=== PATIENT | male | born 1975 | race Caucasian/White ===

== ENCOUNTER 2025-03-19 13:22 | Inpatient (IN) ==
--- NOTE | 2025-03-19 13:35 | Emergency Department Note ---
Impression & Plan Psychosis, Acute dehydration, JIMY (acute kidney injury) ED Provider Note NAME: TABITHA BRAGG AGE: 49 SEX: M : 1975 ARRIVES VIA: [employer] INFORMANT: Patient, ED PROVIDER(S): Rl Cornejo MD CHIEF COMPLAINT: Mental health concern MEDICAL DECISION MAKING: Patient presented due to concern for mental wellness concern. Patient did require sedation the patient is not cooperative with history. Patient did receive Haldol Ativan and Benadryl. Patient's blood work with white count of 11 with normal H&H and platelet count. The patient's kidney function with a creatinine 1.5 with a bicarb of 16 and anion gap of 20. Patient was noted to have metabolic derangements in bicarb and anion gap so the patient was ordered an IV as well as 2 L of IV fluids and repeat BMP. There is concern that the patient could have substance on board. Patient was signed out to Dr. Murphy pending reevaluation and disposition. Discussion w/ other healthcare providers: ED case management Prior /Outside records reviewed: none Differential diagnosis: Mood disorder, infection, hypoglycemia, electrolyte abnormalities, dehydration, medication side effect among others were considered. Diagnostics, as interpreted by me: ECG: None Medical decision rules: None Imaging studies: None HPI: Patient presents due to concern for mental wellness concern. Reportedly the patient's sister had not heard from him in several days and so please go to go check on the patient. The patient was unable to complete sentences and reported he was lying in the grass. When asked the patient does not answer question at hand but instead will talk about other things in the room or saying "are you serious? Are you serious? You do not know where we are?" PAST MEDICAL HISTORY: See Below PAST SURGICAL HISTORY: See Below SOCIAL HISTORY: See Below HOME MEDICATIONS: See Below ALLERGIES: See Below VITALS: See Below PHYSICAL EXAMINATION: GENERAL: Awake and alert. EYE EXAM: Normal conjunctiva. PERRL, no anisocoria and EOM's grossly intact w/o pain. OROPHARYNX: Moist mucus membranes, grossly normal dentition. NECK: Trachea midline, no stridor. LUNGS: Clear to auscultation. Normal chest wall mechanics. HEART: NSR, no MRG. ABDOMEN: Abdomen soft, non-tender, no masses, no rebound or guarding. SKIN: No rashes and no bruising. UPPER EXTREMITIES: Upper extremities are grossly normal. LOWER EXTREMITIES: Grossly normal, no edema. NEURO EXAM: Awake and alert, follows commands, no obvious facial asymmetry, normal speech, moves all 4 extremities. Psych: Tangential patient does not specifically endorse or deny SI HI or AVH. Past Med/Surg History Problem List (Updated 03/23/25 @ 23:46 by Rl Cornejo MD) JIMY (acute kidney injury) (Acute) Acute dehydration (Acute) Cannabis use disorder, moderate, dependence Acute urinary retention Urinary retention Bipolar disorder with severe shemar Bipolar disorder with psychotic features Marijuana use, continuous Acute psychosis Rhabdomyolysis Psychosis (Acute) Sensorineural hearing loss of combined types, bilateral Tinnitus, bilateral Social History Smoking Status: Unknown if ever smoked Hx Alcohol Use: No Hx Substance Use: Yes Preferred Language: Japanese Communication Ability: Impaired Family Day Carer Required: No Beliefs That Will Affect Care: None Feels Safe at Home: Yes Gender Identity: Male Assistive Devices: Glasses Allergies Allergies Allergy/AdvReac Type Severity Reaction Status Date / Time cat dander Allergy Unknown Verified 03/20/25 02:17 Home Meds Home Medications Medication Instructions Recorded Confirmed lurasidone 40 mg tablet (Latuda) 40 mg PO DAILY 03/20/25 03/20/25 mirtazapine 15 mg tablet (Remeron) 15 mg PO HS 03/20/25 03/20/25 quetiapine 50 mg tablet (Seroquel) 50 mg PO HS PRN Insomnia 03/20/25 03/20/25 melatonin 3 mg tablet 6 mg PO HS PRN sleep 03/23/25 03/23/25 quetiapine 100 mg tablet 100 mg PO TID PRN anxiety/agitation 03/23/25 03/23/25 Previous Rx's Medication Instructions Recorded hydroxyzine HCl 10 mg tablet 10 mg PO QID PRN #0 tabs 03/23/25 lithium carbonate 300 mg tablet 300 mg PO HS #0 tabs 03/23/25 quetiapine 200 mg tablet (Seroquel) 200 mg PO HS #0 tabs 03/23/25 tamsulosin 0.4 mg capsule 0.4 mg PO QAM #30 caps 03/23/25 Results & Data (ED) Home Medications Current Medication List: was personally reviewed by tx Laboratory Data Attestation: I reviewed the patient's lab results. 03/20/25 04:05 03/22/25 06:11 Lab Results 03/19/25 03/19/25 03/19/25 Range/Units 13:38 18:42 18:56 WBC 11.57 H (4.8-10.8) K/ul RBC 5.34 (4.70-6.10) M/uL Hgb 16.3 (14.0-18.0) g/dl Hct 45.6 (42.0-52.0) % MCV 85.4 (80.0-100.0) fL MCH 30.5 (25.0-34.0) pg MCHC 35.7 (32.0-36.0) g/dL RDW Std Deviation 37.9 (36.4-46.3) fL RDW Coeff of Manjit 12.2 (11.5-14.5) % Plt Count 366 (130-400) K/uL MPV 9.5 (9.4-12.4) fL Immature Gran % (Auto) 0.3 % Neut % (Auto) 61.6 % Lymph % (Auto) 22.8 % Mellette % (Auto) 11.0 % Eos % (Auto) 3.5 % Baso % (Auto) 0.8 % Neut # (Auto) 7.13 H (1.40-6.50) K/uL Lymph # (Auto) 2.64 (1.20-3.40) K/uL Mellette # (Auto) 1.27 H (0.11-0.59) K/uL Eos # (Auto) 0.41 (0.00-0.50) K/uL Baso # (Auto) 0.09 (0.00-0.20) K/uL Immature Gran # (Auto) 0.03 (0.01-0.20) K/uL Sodium 140 140 (136-145) mmol/L Potassium 3.4 L 3.6 (3.5-5.1) mmol/L Chloride 104 110 H (98-107) mmol/L Carbon Dioxide 16 L 23 (21-32) mmol/L Anion Gap 20 H 7 (3-11) BUN 32 H 28 H (6-23) mg/dl Creatinine 1.55 H 1.27 (0.6-1.4) mg/dl Est Cr Clr Drug Dosing Not Reportable Not Reportable eGFR 54.87 69.69 BUN/Creatinine Ratio 20.6 H 22.0 H (10-20) Glucose 97 86 (70-99(Fasting)) mg/dl Calcium 10.2 8.0 L D (8.6-10.3) mg/dl Magnesium (1.7-2.4) mg/dl Total Bilirubin 1.8 H (0.2-1.0) mg/dl AST 50 H (13-39) U/L ALT 26 (7-52) U/L Alkaline Phosphatase 74 (34-104) U/L Total Creatine Kinase 925 H (30-223) U/L Total Protein 7.7 (6.0-8.3) gm/dl Albumin 4.6 (3.4-5.0) gm/dl Globulin 3.1 (2.5-4.0) gm/dl Albumin/Globulin Ratio 1.5 (0.9-2) TSH 1.257 (0.300-4.500) uIu/ml Urine Color Urine Appearance (Clear) Urine pH (4.5-7.5) Ur Specific [place] (1.000-1.030) Urine Protein (Negative) Urine Glucose (UA) (Negative) Urine Ketones (Negative) Urine Blood (Negative) Urine Nitrite (Negative) Urine Bilirubin (Negative) Urine Urobilinogen (Negative) Ur Leukocyte Esterase (Negative) Urine Comment Salicylates < 3.0 L (3.0-30) mg/dl Urine Opiates Screen (Neg) Ur Methadone, Qual (Neg) Urine Fentanyl Screen (Neg) Acetaminophen < 3 L (10-30) ug/ml Urine Barbiturates (Neg) Ur Phencyclidine (PCP) (Neg) U Amphetamin/Meth Scrn (Neg) MDMA (Ecstasy) Screen (Neg) U Benzodiazepines Scrn (Neg) Ur Cocaine Metabolite (Neg) U Marijuana (THC) Screen (Neg) U Marijuana THC Carboxy (<5) ng/mL Drug Screen Comment Ethyl Alcohol mg/dL < 10.0 (<10.0) mg/dl SARS-CoV-2, RNA, NAAT NEGATIVE (NEGATIVE) 03/19/25 03/19/25 Range/Units 20:35 23:55 WBC (4.8-10.8) K/ul RBC (4.70-6.10) M/uL Hgb (14.0-18.0) g/dl Hct (42.0-52.0) % MCV (80.0-100.0) fL MCH (25.0-34.0) pg MCHC (32.0-36.0) g/dL RDW Std Deviation (36.4-46.3) fL RDW Coeff of Manjit (11.5-14.5) % Plt Count (130-400) K/uL MPV (9.4-12.4) fL Immature Gran % (Auto) % Neut % (Auto) % Lymph % (Auto) % Mellette % (Auto) % Eos % (Auto) % Baso % (Auto) % Neut # (Auto) (1.40-6.50) K/uL Lymph # (Auto) (1.20-3.40) K/uL Mellette # (Auto) (0.11-0.59) K/uL Eos # (Auto) (0.00-0.50) K/uL Baso # (Auto) (0.00-0.20) K/uL Immature Gran # (Auto) (0.01-0.20) K/uL Sodium (136-145) mmol/L Potassium (3.5-5.1) mmol/L Chloride (98-107) mmol/L Carbon Dioxide (21-32) mmol/L Anion Gap (3-11) BUN (6-23) mg/dl Creatinine (0.6-1.4) mg/dl Est Cr Clr Drug Dosing eGFR BUN/Creatinine Ratio (10-20) Glucose (70-99(Fasting)) mg/dl Calcium (8.6-10.3) mg/dl Magnesium 2.3 (1.7-2.4) mg/dl Total Bilirubin (0.2-1.0) mg/dl AST (13-39) U/L ALT (7-52) U/L Alkaline Phosphatase (34-104) U/L Total Creatine Kinase 1169 H (30-223) U/L Total Protein (6.0-8.3) gm/dl Albumin (3.4-5.0) gm/dl Globulin (2.5-4.0) gm/dl Albumin/Globulin Ratio (0.9-2) TSH (0.300-4.500) uIu/ml Urine Color Yellow Urine Appearance Clear (Clear) Urine pH 5.5 (4.5-7.5) Ur Specific [place] 1.028 (1.000-1.030) Urine Protein Negative (Negative) Urine Glucose (UA) Negative (Negative) Urine Ketones 1+ H (Negative) Urine Blood Negative (Negative) Urine Nitrite Negative (Negative) Urine Bilirubin Negative (Negative) Urine Urobilinogen Negative (Negative) Ur Leukocyte Esterase Negative (Negative) Urine Comment Salicylates (3.0-30) mg/dl Urine Opiates Screen Neg (Neg) Ur Methadone, Qual Neg (Neg) Urine Fentanyl Screen Neg (Neg) Acetaminophen (10-30) ug/ml Urine Barbiturates Neg (Neg) Ur Phencyclidine (PCP) Neg (Neg) U Amphetamin/Meth Scrn Neg (Neg) MDMA (Ecstasy) Screen Neg (Neg) U Benzodiazepines Scrn Neg (Neg) Ur Cocaine Metabolite Neg (Neg) U Marijuana (THC) Screen Pos H (Neg) U Marijuana THC Carboxy 416 H (<5) ng/mL Drug Screen Comment SEE NOTE Ethyl Alcohol mg/dL (<10.0) mg/dl SARS-CoV-2, RNA, NAAT (NEGATIVE) Administered Medications Discontinued Medications Enoxaparin Sodium (Enoxaparin Inj 40 Mg/0.4 Ml Syr) 40 mg SQ QAM DENISHA Stop: 04/19/25 08:59 Last Admin: 03/23/25 08:39 Dose: 40 mg Documented By: Admin: 03/22/25 07:35 Dose: 40 mg Documented By: Admin: 03/21/25 08:18 Dose: 40 mg Documented By: Admin: 03/20/25 09:12 Dose: 40 mg Documented By: AUSTIN Haloperidol Lactate (Haloperidol Lactate 5 Mg/Ml 1 Ml Vial) 5 mg IM NOW STA Stop: 03/19/25 13:51 Last Admin: 03/19/25 13:54 Dose: 5 mg Documented By: TOPHER Haloperidol Lactate (Haloperidol Lactate 5 Mg/Ml 1 Ml Vial) 5 mg IM NOW STA Stop: 03/19/25 14:21 Last Admin: 03/19/25 14:24 Dose: 5 mg Documented By: TOPHER Hydroxyzine HCl (Hydroxyzine Hcl 10 Mg Tab) 10 mg PO QID PRN PRN Reason: Anxiety Stop: 04/21/25 21:00 Last Admin: 03/22/25 21:22 Dose: 10 mg Documented By: TKB Sodium Chloride (Nss) 1,000 mls @ 999 mls/hr IV .Q1H1M DENISHA Stop: 03/19/25 17:30 Last Infusion: 03/19/25 17:01 Dose: Infused Documented By: Admin: 03/19/25 16:00 Dose: 999 mls/hr Documented By: Infusion: 03/19/25 16:00 Dose: Infused Documented By: Admin: 03/19/25 15:30 Dose: 999 mls/hr Documented By: NJM Sodium Chloride (Nss) 1,000 mls @ 100 mls/hr IV .Q10H DENISHA Stop: 03/21/25 01:14 Last Infusion: 03/21/25 01:47 Dose: Infused Documented By: Admin: 03/20/25 20:37 Dose: 200 mls/hr Documented By: Infusion: 03/20/25 19:48 Dose: Infused Documented By: Infusion: 03/20/25 17:48 Dose: 200 mls/hr Documented By: Admin: 03/20/25 13:58 Dose: 200 mls/hr Documented By: Infusion: 03/20/25 13:54 Dose: Infused Documented By: Admin: 03/20/25 08:45 Dose: 200 mls/hr Documented By: Infusion: 03/20/25 08:45 Dose: Infused Documented By: Admin: 03/20/25 01:25 Dose: 125 mls/hr Documented By: ERIC [place] Carbonate ([place] Carbonate 300 Mg Tab) 300 mg PO HS DENISHA Stop: 04/20/25 20:59 Last Admin: 03/22/25 20:13 Dose: 300 mg Documented By: Admin: 03/21/25 20:39 Dose: 300 mg Documented By: ANDRIA Lorazepam (Lorazepam 2 Mg/1 Ml Vial) 2 mg IM NOW STA Stop: 03/19/25 14:21 Last Admin: 03/19/25 14:25 Dose: 2 mg Documented By: TOPHER Lorazepam (Lorazepam 2 Mg/1 Ml Vial) 2 mg IM Q4H PRN PRN Reason: Agitation Stop: 04/20/25 16:01 Last Admin: 03/21/25 18:02 Dose: 2 mg Documented By: CSC Lorazepam (Lorazepam 0.5 Mg Tab) 0.25 mg PO NOW STA Stop: 03/22/25 22:24 Last Admin: 03/22/25 22:43 Dose: 0.25 mg Documented By: EKF Lorazepam (Lorazepam 2 Mg/1 Ml Vial) 0.25 mg IV NOW STA Stop: 03/22/25 23:36 Last Admin: 03/23/25 00:30 Dose: 0.25 mg Documented By: EKF Lorazepam (Lorazepam 2 Mg/1 Ml Vial) 2 mg IV NOW STA Stop: 03/23/25 10:53 Last Admin: 03/23/25 11:07 Dose: 2 mg Documented By: JR Melatonin (Melatonin 3 Mg Tab) 6 mg PO HS PRN PRN Reason: Sleep Stop: 04/21/25 23:35 Last Admin: 03/23/25 00:35 Dose: 6 mg Documented By: EKF Menthol (Cough Drop (Sugar Free) Paulino 24 Paulino/1 Box) 1 paulino BUCCAL NOW ONE Stop: 03/22/25 20:17 Last Admin: 03/22/25 20:23 Dose: 1 paulino Documented By: TKB Metoprolol Tartrate (Metoprolol Tartrate 1 Mg/Ml Vial) 2.5 mg IV NOW STA Stop: 03/20/25 04:45 Last Admin: 03/20/25 05:39 Dose: 2.5 mg Documented By: PJP Olanzapine (Olanzapine 10 Mg/2.1 Ml Sdv) 2.5 mg IM Q4H PRN PRN Reason: Agitation Stop: 04/19/25 02:17 Last Admin: 03/20/25 04:38 Dose: 2.5 mg Documented By: AMPARO Olanzapine (Olanzapine 10 Mg/2.1 Ml Sdv) 2.5 mg IM NOW STA Stop: 03/20/25 19:53 Last Admin: 03/20/25 20:37 Dose: 2.5 mg Documented By: PNM Quetiapine Fumarate (Quetiapine Fumarate 200 Mg Tab) 200 mg PO HS DENISHA Stop: 04/19/25 20:59 Last Admin: 03/22/25 20:13 Dose: 200 mg Documented By: Admin: 03/21/25 20:40 Dose: 200 mg Documented By: Admin: 03/20/25 22:51 Dose: 200 mg Documented By: JANICE Quetiapine Fumarate (Quetiapine Fumarate 100 Mg Tablet) 100 mg PO TID PRN PRN Reason: Agitation/psychosis Stop: 04/19/25 20:59 Last Admin: 03/22/25 16:19 Dose: 100 mg Documented By: Admin: 03/21/25 14:59 Dose: 100 mg Documented By: OSMAN Tamsulosin HCl (Tamsulosin Hcl 0.4 Mg Cap) 0.4 mg PO QAM [facility] Stop: 04/20/25 08:59 Last Admin: 03/23/25 08:39 Dose: 0.4 mg Documented By: Admin: 03/22/25 07:36 Dose: 0.4 mg Documented By: Admin: 03/21/25 08:51 Dose: 0.4 mg Documented By: TOBIAS Discharge Plan Visit Data Chief Complaint: Mental Health Evaluation ED Provider: Samson Diaz Discharge Problem: Psychosis, Acute dehydration, JIMY (acute kidney injury) Patient Disposition: Admitted As Inpatient Condition: Good Discharge Instructions Interventions: ED Discharge Assessment Last Done: 03/20/25 02:12 Discharge Problem: Psychosis Qualifiers: Psychosis type: unspecified psychosis type Qualified Code(s): F29 - Unspecified psychosis not due to a substance or known physiological condition
[2025-03-19 14:13] LABS: Basophils # (auto) 0.09 K/uL (0.00-0.20); Basophils % (auto) 0.8 %; Eosinophils # (auto) 0.41 K/uL (0.00-0.50); Eosinophils % (auto) 3.5 %; Hematocrit (blood only) 45.6 % (42.0-52.0); Hemoglobin 16.3 g/dl (14.0-18.0); Immature Granulocytes # (auto) 0.03 K/uL (0.01-0.20); Immature Granulocytes % (auto) 0.3 %; Lymphocytes # (auto) 2.64 K/uL (1.20-3.40); Lymphocytes % (auto) 22.8 %; Mean Corpuscular Hemoglobin 30.5 pg (25.0-34.0); Mean Corpuscular Hgb Conc 35.7 g/dL (32.0-36.0); Mean Corpuscular Volume 85.4 fL (80.0-100.0); Mean Platelet Volume 9.5 fL (9.4-12.4); Monocytes # (auto) 1.27 K/uL (0.11-0.59); Neutrophils # (auto) 7.13 K/uL (1.40-6.50); Neutrophils % (auto) 61.6 %; Platelet Count 366 K/uL (130-400); RDW Coefficient of Variation 12.2 % (11.5-14.5); RDW Standard Deviation 37.9 fL (36.4-46.3); Red Blood Count 5.34 M/uL (4.70-6.10); White Blood Count 11.57 K/ul (4.8-10.8)
[2025-03-19 14:34] LABS: Albumin Level 4.6 gm/dl (3.4-5.0); Anion Gap 20 (3-11); Bilirubin,Total 1.8 mg/dl (0.2-1.0); Calcium 10.2 mg/dl (8.6-10.3); Carbon Dioxide 16 mmol/L (21-32); Chloride 104 mmol/L (98-107); Potassium 3.4 mmol/L (3.5-5.1); Sodium 140 mmol/L (136-145)
[2025-03-19 14:39] LABS: Acetaminophen < 3 ug/ml (10-30); Salicylate < 3.0 mg/dl (3.0-30)
[2025-03-19 14:40] LABS: Alanine Aminotransferase 26 U/L (7-52); Albumin Globulin Ratio 1.5 (0.9-2); Alkaline Phosphatase 74 U/L (34-104); Aspartate Aminotransferase 50 U/L (13-39); BUN Creatinine Ratio 20.6 (10-20); Blood Urea Nitrogen 32 mg/dl (6-23); Globulin 3.1 gm/dl (2.5-4.0); Glucose 97 mg/dl (70-99(Fasting)); Total Protein 7.7 gm/dl (6.0-8.3)
[2025-03-19 14:51] LABS: Thyroid Stimulating Hormone 1.257 uIu/ml (0.300-4.500)
--- NOTE | 2025-03-19 19:12 | Emergency Department Note ---
ED Visit Note Received this patient sent from Dr. Cornejo see his note for further additional riving details. Patient evidently somewhat agitated confused upon arrival and received sedating medication for safety and workup. Seem to have some mild chemistry abnormalities/possibly mild dehydration and repeat blood work was ordered by Dr. Cornejo to be completed at 6 PM. Did receive IV fluids. Repeat blood work did show improved renal function and closure of anion gap. CK is very minimally elevated at 925 but I doubt radha rhabdomyolysis. Has been having intake and urinated here. UDS positive for marijuana which she admits to. Patient was seen by case management as well who got additional history of the patient's family and mother. Patient's friends and business intelligence etl developer later arrives and reports that his behavior living with grafts and grounding with your does not have a typical disease try to get more in touch with nature and avoid the industrial society. Patient was monitored for several additional hours to ensure his sensorium cleared. No reported SI or HI either earlier from the patient. Patient on reassessment around 9:30pm with friend Merlyn at bedside. Case management has discussed with the patient's and in particular his mother had expressed concerns to case management with the patient going home. Patient is somewhat drowsy but arousable. He is able to carry on some basic conversation but seems quite forgetful and is unable to relate back to me details and instructions we discussed for tonight within minutes of the conversation. He seems to relay or asked questions of his friend at bedside. He relays he would like to go to [facility] where he lives. He attempts to get up and walk to the opposing wall of the room to show that things are okay and when getting across the room he taps on the metal wall plate 3 times on the wall and then stumbles a bit. He likely did not fall. He then states he heard a voice that told him to do this and saw flashes of something. Nothing else was visualized by myself or case management feet away from him. Patient's friend is quite adamant that he will do fine if she takes him home and stays with him tonight. He later asked about someone sleeping in bed with him. Advised this was against hospital policy to have multiple persons in 1 bed. While the patient Patient's friend also expresses concerns that she may have to leave and needs to take care of his other animals. I expressed to her that my primary concern is the patient and if she needed to take care of the animal she is free to do so. Patient's parents are supposed to arrive tomorrow morning and could possibly be more assistance but he appears to be responding to external stimuli and have significant concerns for psychosis. Discussed with patient's friend as well as the patient that I have significant concerns with his safety and his ability to go home at this time and care for himself. He has made statements that he uses weed and likes being with nature which are reasonable options however at this point late at night sending him home with findings concerning for possible psychosis and what appears to response to external stimuli that I do not feel that he himself could care for himself -- this does not seem safe. As such 302 involuntary commitment was upheld. Case management assisted with rest of the process and bed search. Signed out at the end of my shift to Dr. Diaz pending placement. .
[2025-03-19 19:25] LABS: Anion Gap 7 (3-11); Blood Urea Nitrogen 28 mg/dl (6-23); Carbon Dioxide 23 mmol/L (21-32); Chloride 110 mmol/L (98-107); Glucose 86 mg/dl (70-99(Fasting)); Potassium 3.6 mmol/L (3.5-5.1); Sodium 140 mmol/L (136-145)
[2025-03-19 20:53] LABS: Appearance Urine Clear (Clear); Bilirubin Urine Negative (Negative); Blood Urine Negative (Negative); Color Urine Yellow; Glucose Urine UA Negative (Negative); Ketones Urine 1+ (Negative); Leukocyte Esterase Urine Negative (Negative); Nitrite Urine Negative (Negative); Protein Urine Negative (Negative); Specific Gravity Urine 1.028 (1.000-1.030); Urobilinogen Urine Negative (Negative); pH Urine 5.5 (4.5-7.5)
[2025-03-19 21:21] LABS: Amphetamines+Metham, Urine Neg (Neg); Barbiturates, Urine Neg (Neg); Benzodiazepine, Urine Neg (Neg); Cocaine, Urine Neg (Neg); Fentanyl, Urine Neg (Neg); MDMA (Ecstacy), Urine Neg (Neg); Marijuana, Urine Pos (Neg); Methadone, Urine Neg (Neg); Opiate, Urine Neg (Neg); Phencyclidine, Urine Neg (Neg)
--- NOTE | 2025-03-19 23:40 | Emergency Department Note ---
ED Visit Note The patient was taken in signout from Dr. Weiss at the change of shift. The patient was seen initially by Dr. Cornejo. Please see that note for details of the patient's presentation. The patient inpatient psychiatric bed search under a 302 lack of insight and hallucinations with inability to care himself. Patient had a CPK 900 (upper limit of normal 223) in the setting of being found on the ground where he was "communing with nature". The patient did receive 2 L of IV fluid hydration. The patient does use marijuana daily. The patient did require chemical sedation with Haldol and Ativan due to agitation earlier this afternoon. Initial blood work did demonstrate mild JIMY with creatinine of 1.5 with anion gap of 20 and bicarbonate of 16. Patient was treated with IV fluids with 2 L normal saline and creatinine had improved and anion gap and bicarbonate normalized. CPK was repeated subsequently to ensure downtrending and this did slightly increased to 1169. Thus, patient was ordered for additional IV fluid hydration and medical admission was pursued. [facility]. Further management per admitting team.
--- NOTE | 2025-03-20 01:51 | History & Physical Report ---
Date of Service March 20, 2025 Assessment & Plan (1) Rhabdomyolysis: Plan: Assessment and plan below following discussion of case with ED provider and reviewing patient history/pertinent normal/abnormal diagnostic test results. Rhabdomyolysis secondary to psychotic episode History anxiety/mood disorder, medication noncompliance Admit to med/tele given episodic tachycardia Monitor CPK response to IVF Psych consult re: psychosis Zyprexa as needed agitation DVT prophylaxis. Lovenox subcu Full code personal lines account manager for patient his mother, Miss Nicanor Cifuentes ([phone]). Text document was generated using [employer] voice recognition software. It may contain grammatical or spelling errors. Kindly contact undersigned for clarification of any documentation item in question. History of Present Illness Chief Complaint: Confusion as per records Grace straight as per patient. Primary Care Provider: Janette Wynn PA-C History obtained from patient, ED provider, and records. Patient not a reliable historian secondary to disoriented state. Medical history significant for anxiety/mood disorder, past tobacco abuse. Patient family had not heard from patient the last couple of days. Patient family worried about patient because he has not been taking his mood medications. Patient family unaware of suicidality. Local police called to patient's home for welfare check. Patient noted to be confused and disoriented. Patient initially ran from police into the [facility]. Patient brought to the ER for evaluation. Transient tachycardia noted at the ER. Patient unable to answer questions regarding headache, chest pain, SOB, abdominal pain, suicidality. Medical History as above Surgical History : None Family History : Heart disease Personal/Social history : Past tobacco abuse, no EtOH intake, lives by himself Allergies Allergy/AdvReac Type Severity Reaction Status Date / Time cat dander Allergy Unknown Verified 03/20/25 02:17 Home Medications Medication Instructions Recorded Confirmed Type lurasidone 40 mg tablet (Latuda) 40 mg PO DAILY 03/20/25 03/20/25 History mirtazapine 15 mg tablet (Remeron) 15 mg PO HS 03/20/25 03/20/25 History quetiapine 50 mg tablet (Seroquel) 50 mg PO HS PRN Insomnia 03/20/25 03/20/25 History Past Med/Surg History Problem List (Updated 03/20/25 @ 03:34 by Rede Castrejon MD) Rhabdomyolysis Psychosis (Acute) Sensorineural hearing loss of combined types, bilateral Tinnitus, bilateral Social History Smoking Status: Unknown if ever smoked Hx Alcohol Use: No Hx Substance Use: Yes Preferred Language: Lithuanian Communication Ability: Impaired Concrete Bucket Unloader Required: No Beliefs That Will Affect Care: None Feels Safe at Home: Declines to Answer Review of Systems Review of Systems: Could not be reliably obtained secondary to disorientation Physical Exam Physical Exam: GENERAL: Disoriented, incoherent, paranoid, no respiratory distress SKIN: Normal color, warm HEENT: [place] palpebral conjunctivae, no ptosis, dry buccal mucosa NECK : Supple, no tenderness CHEST : CTA, no tenderness HEART : RRR, no obvious murmurs ABDOMEN: Some distention, nontender EXTREMITIES : No LE swelling/tenderness, palpable pulses, no other conspicuous deformities noted NEUROLOGIC : Incoherent, no facial asymmetry, gait and stance not assessed Results & Data Results & Data Vital Signs (Past 12 Hours) Vital Signs Temp Pulse Pulse Resp BP BP Pulse Ox 03/19/25 23:00 89 20 159/95 H 98 03/19/25 21:58 36.6 C 70 18 152/92 H 96 03/19/25 20:25 150 H 03/19/25 20:00 70 18 120/93 96 03/19/25 18:30 70 17 114/77 97 03/19/25 18:23 71 03/19/25 18:00 70 19 110/79 97 03/19/25 18:00 70 18 110/79 97 03/19/25 17:03 74 18 151/93 H 98 03/19/25 16:36 75 16 150/97 H 97 03/19/25 16:03 63 20 139/93 100 03/19/25 16:00 68 18 139/93 100 03/19/25 15:30 64 23 118/79 98 03/19/25 15:14 101 H 03/19/25 15:00 72 18 128/88 03/19/25 14:34 109 H 20 180/128 H 96 O2 Del Method 03/19/25 23:00 Room Air 03/19/25 21:58 Room Air 03/19/25 20:25 03/19/25 20:00 Room Air 03/19/25 18:30 03/19/25 18:23 03/19/25 18:00 03/19/25 18:00 Room Air 03/19/25 17:03 03/19/25 16:36 03/19/25 16:03 03/19/25 16:00 Room Air 03/19/25 15:30 03/19/25 15:14 03/19/25 15:00 03/19/25 14:34 Room Air Laboratory Results Laboratory Results WBC 11.57 K/ul (4.8-10.8) H 03/19/25 13:38 RBC 5.34 M/uL (4.70-6.10) 03/19/25 13:38 Hgb 16.3 g/dl (14.0-18.0) 03/19/25 13:38 Hct 45.6 % (42.0-52.0) 03/19/25 13:38 MCV 85.4 fL (80.0-100.0) 03/19/25 13:38 MCH 30.5 pg (25.0-34.0) 03/19/25 13:38 MCHC 35.7 g/dL (32.0-36.0) 03/19/25 13:38 RDW Std Deviation 37.9 fL (36.4-46.3) 03/19/25 13:38 RDW Coeff of Manjit 12.2 % (11.5-14.5) 03/19/25 13:38 Plt Count 366 K/uL (130-400) 03/19/25 13:38 MPV 9.5 fL (9.4-12.4) 03/19/25 13:38 Immature Gran % (Auto) 0.3 % 03/19/25 13:38 Neut % (Auto) 61.6 % 03/19/25 13:38 Lymph % (Auto) 22.8 % 03/19/25 13:38 [place] % (Auto) 11.0 % 03/19/25 13:38 Eos % (Auto) 3.5 % 03/19/25 13:38 Baso % (Auto) 0.8 % 03/19/25 13:38 Neut # (Auto) 7.13 K/uL (1.40-6.50) H 03/19/25 13:38 Lymph # (Auto) 2.64 K/uL (1.20-3.40) 03/19/25 13:38 [place] # (Auto) 1.27 K/uL (0.11-0.59) H 03/19/25 13:38 Eos # (Auto) 0.41 K/uL (0.00-0.50) 03/19/25 13:38 Baso # (Auto) 0.09 K/uL (0.00-0.20) 03/19/25 13:38 Immature Gran # (Auto) 0.03 K/uL (0.01-0.20) 03/19/25 13:38 Sodium 140 mmol/L (136-145) 03/19/25 18:42 Potassium 3.6 mmol/L (3.5-5.1) 03/19/25 18:42 Chloride 110 mmol/L (98-107) H 03/19/25 18:42 Carbon Dioxide 23 mmol/L (21-32) 03/19/25 18:42 Anion Gap 7 (3-11) 03/19/25 18:42 BUN 28 mg/dl (6-23) H 03/19/25 18:42 Creatinine 1.27 mg/dl (0.6-1.4) 03/19/25 18:42 Est Cr Clr Drug Dosing Not Reportable 03/19/25 18:42 eGFR 69.69 03/19/25 18:42 BUN/Creatinine Ratio 22.0 (10-20) H 03/19/25 18:42 Glucose 86 mg/dl (70-99(Fasting)) 03/19/25 18:42 Calcium 8.0 mg/dl (8.6-10.3) L D 03/19/25 18:42 Total Bilirubin 1.8 mg/dl (0.2-1.0) H 03/19/25 13:38 AST 50 U/L (13-39) H 03/19/25 13:38 ALT 26 U/L (7-52) 03/19/25 13:38 Alkaline Phosphatase 74 U/L (34-104) 03/19/25 13:38 Total Creatine Kinase 1169 U/L (30-223) H 03/19/25 23:55 Total Protein 7.7 gm/dl (6.0-8.3) 03/19/25 13:38 Albumin 4.6 gm/dl (3.4-5.0) 03/19/25 13:38 Globulin 3.1 gm/dl (2.5-4.0) 03/19/25 13:38 Albumin/Globulin Ratio 1.5 (0.9-2) 03/19/25 13:38 TSH 1.257 uIu/ml (0.300-4.500) 03/19/25 13:38 Urine Color Yellow 03/19/25 20:35 Urine Appearance Clear (Clear) 03/19/25 20:35 Urine pH 5.5 (4.5-7.5) 03/19/25 20:35 Ur Specific [place] 1.028 (1.000-1.030) 03/19/25 20:35 Urine Protein Negative (Negative) 03/19/25 20:35 Urine Glucose (UA) Negative (Negative) 03/19/25 20:35 Urine Ketones 1+ (Negative) H 03/19/25 20:35 Urine Blood Negative (Negative) 03/19/25 20:35 Urine Nitrite Negative (Negative) 03/19/25 20:35 Urine Bilirubin Negative (Negative) 03/19/25 20:35 Urine Urobilinogen Negative (Negative) 03/19/25 20:35 Ur Leukocyte Esterase Negative (Negative) 03/19/25 20:35 Urine Comment 03/19/25 20:35 Salicylates < 3.0 mg/dl (3.0-30) L 03/19/25 13:38 Urine Opiates Screen Neg (Neg) 03/19/25 20:35 Ur Methadone, Qual Neg (Neg) 03/19/25 20:35 Urine Fentanyl Screen Neg (Neg) 03/19/25 20:35 Acetaminophen < 3 ug/ml (10-30) L 03/19/25 13:38 Urine Barbiturates Neg (Neg) 03/19/25 20:35 Ur Phencyclidine (PCP) Neg (Neg) 03/19/25 20:35 U Amphetamin/Meth Scrn Neg (Neg) 03/19/25 20:35 MDMA (Ecstasy) Screen Neg (Neg) 03/19/25 20:35 U Benzodiazepines Scrn Neg (Neg) 03/19/25 20:35 Ur Cocaine Metabolite Neg (Neg) 03/19/25 20:35 U Marijuana (THC) Screen Pos (Neg) H 03/19/25 20:35 Ethyl Alcohol mg/dL < 10.0 mg/dl (<10.0) 03/19/25 13:38 SARS-CoV-2, RNA, NAAT NEGATIVE (NEGATIVE) 03/19/25 18:56 Diagnostic Findings EKG as per my interpretation rate 70, NSR, LAD, LAFB, septal infarct, no ischemia
[2025-03-20 02:23] LABS: Magnesium 2.3 mg/dl (1.7-2.4)
[2025-03-20 04:19] LABS: Basophils # (auto) 0.07 K/uL (0.00-0.20); Basophils % (auto) 0.7 %; Eosinophils # (auto) 1.17 K/uL (0.00-0.50); Eosinophils % (auto) 11.6 %; Hematocrit (blood only) 43.8 % (42.0-52.0); Hemoglobin 15.2 g/dl (14.0-18.0); Immature Granulocytes # (auto) 0.02 K/uL (0.01-0.20); Immature Granulocytes % (auto) 0.2 %; Lymphocytes # (auto) 2.47 K/uL (1.20-3.40); Lymphocytes % (auto) 24.4 %; Mean Corpuscular Hemoglobin 30.2 pg (25.0-34.0); Mean Corpuscular Hgb Conc 34.7 g/dL (32.0-36.0); Mean Corpuscular Volume 86.9 fL (80.0-100.0); Mean Platelet Volume 9.1 fL (9.4-12.4); Monocytes % (auto) 11.9 %; Neutrophils # (auto) 5.19 K/uL (1.40-6.50); Neutrophils % (auto) 51.2 %; Platelet Count 272 K/uL (130-400); RDW Coefficient of Variation 12.3 % (11.5-14.5); RDW Standard Deviation 39.2 fL (36.4-46.3); Red Blood Count 5.04 M/uL (4.70-6.10); White Blood Count 10.12 K/ul (4.8-10.8)
[2025-03-20 04:31] LABS: Anion Gap 6 (3-11); Calcium 8.5 mg/dl (8.6-10.3); Carbon Dioxide 23 mmol/L (21-32); Chloride 108 mmol/L (98-107); Potassium 3.7 mmol/L (3.5-5.1); Sodium 137 mmol/L (136-145)
[2025-03-20 04:37] LABS: BUN Creatinine Ratio 20.2 (10-20); Blood Urea Nitrogen 22 mg/dl (6-23); Creatine Kinase 1018 U/L (30-223); Glucose 92 mg/dl (70-99(Fasting))
--- NOTE | 2025-03-20 12:39 | Hospitalist Progress Note ---
Date of Service March 20, 2025 Assessment & Plan (1) Rhabdomyolysis: (2) Acute psychosis: (3) Marijuana use, continuous: (4) Bipolar disorder with psychotic features: Plan Patient currently medically admitted to the hospital due to rhabdomyolysis which appears to be improving Continue IV fluid resuscitation Follow labs in a.m. Reviewed psych liaison note, patient currently on a 302, anticipate will be ready for U tomorrow pending labs. Admission and Anticipated Discharge Date Admission Date: March 20, 2025 Subjective Patient remains significantly psychotic. Does not answer any questions appropriately. Physical Exam Physical Exam: Patient is fairly calm at this point. CV: S1-S2, regular Pulm: Lungs clear to auscultation Psych: At this time cooperative, somewhat paranoid Results & Data Results & Data Vital Signs (Past 12 Hours) Vital Signs Pulse Pulse Resp BP BP Pulse Ox Pulse Ox 03/20/25 10:49 133/88 03/20/25 08:46 76 18 150/91 H 98 03/20/25 07:58 61 03/20/25 06:00 63 144/95 H 03/20/25 05:39 71 121/84 03/20/25 04:42 95 H 17 150/88 H 96 03/20/25 04:08 65 19 166/88 H 03/20/25 04:04 108 H 03/20/25 02:18 67 18 157/98 H 94 03/20/25 02:12 96 O2 Del Method O2 Del Method 03/20/25 10:49 03/20/25 08:46 Room Air 03/20/25 07:58 03/20/25 06:00 03/20/25 05:39 03/20/25 04:42 03/20/25 04:08 03/20/25 04:04 03/20/25 02:18 Room Air 03/20/25 02:12 Room Air Diagnostic Findings Reviewed imaging, laboratory and diagnostic studies. Pertinent findings as below. CPK 1018, improved
--- NOTE | 2025-03-20 15:23 | Psychiatric Consultation ---
Date of Consultation March 20, 2025 Impression / Recommendations Impression Diagnostically consistent with unspecified psychosis but most likely episode of shemar with psychosis in setting of bipolar affective disorder after recent self- taper off of his mood stabilizers. Discussed medication options in details. He consents to starting [place] and Seroquel for mood stabilization and shemar with psychosis and insomnia. Reviewed side effects as tolerated including [place] potential for renal, thyroid, cardiac side effects. He has been on Seroquel and consents to continuing this. Plan for inpatient psychiatric hospitalization once medically stable. The patient remains hospitalized on a completed 302 involuntary commitment, which if not extended, will on 03/24/2025 @ 2054. This patient must remain on safety precautions with a 1-on-1 and is unable to leave the hospital AMA. Overall, I spent a total of 80 minutes with this case including review of chart records, review of labwork, review of EKG QTc, direct evaluation of the patient at bedside, counseling the patient, discussion of the patient with the Nurse and with the hospitalist provider, discussion with the psychiatric liason during clinical rounds, review of collateral historian information from the family and documentation in the electronic health record. (1) Bipolar disorder with psychotic features: (2) Rhabdomyolysis: (3) Acute psychosis: (4) Bipolar disorder with severe shemar: Plan -Start Seroquel 200mg HS -Seroquel 100mg TID prn for agitation/psychosis -For behavioral emergency would use: olanzapine 10mg IM (DO NOT exceed 20mg per 24 hours, check EKG if IM dose required, NEVER co-administer with IM or IV benzodiazepines). -Continue 1-on-1, he remains on 302 commitment and CANNOT leave AMA Psych History Identifying Data Aashish is a 49 yo man with a history of bipolar affective disorder admitted medically on a 302 commitment for psychosis with disorganization and inability to care for himself and rhabdomyolysis. Psychiatry consulted for 302 commitment and recommendations. Chief Complaint "Orbital, that's everything". History of Present Illness Aashish was brought to the ED due to concerns for acute psychosis after his family asked for welfare check and he was found lying outside on the ground. In the ED was found to have rhabdomyolysis and admitted medically. He was placed on a 302 commitment after trying to leave due to concern for his inability to care for himself. Today he is seen alongside his parents, whom he gives permission to be present. He and his parents confirm a history of bipolar disorder for which he has been stable for many years on medication. However at this spring he decided he wanted to wean himself off of his psychiatric medications and stopped his Depakote Latuda and mirtazapine. He states he was not able to wean himself off his Seroquel and has continued to use cannabis. His thought process is very tangential and loosened and he jumps between a variety of topics including talking about orbital connections and cosmic events, concerns about plastics and artificial intelligence, fears that mother Earth his and then making sta tements that he might have been the one who saved mother earth from her when, discussing songs and music that he enjoys and at times speaking about his loneliness and wishing that he could find romantic connection. Seems that some of his decisions around weaning off his medications in the last few months may have been driven in part by influence from his friend and previous digital business analyst Merlyn who believes strongly that medications should not be used and who left notes with the ED case management describing suggested treatment approaches of having him participate with 7-day [facility] live at a [facility] or that his psychosis may be his "reintegration" as part of his body mind and sole spiritual path. Aashish reports psychiatric history of seeing a Dr. Perry in the [place] area via telemedicine for psychiatry up until the spring. He seems to describe that Dr. Perry was not in support of Aashish coming off of his medications. 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 Past psychiatric medication trials including Depakote, Seroquel, fluoxetine, Wellbutrin, Latuda, mirtazapine. Significant family history of bipolar disorder including a gr andfather who had ECT and an aunt with bipolar disorder. 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 He also enjoys [employer] and being outside. His parents are very supportive. 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 Beliefs That Will Affect Care: None Feels Safe at Home: Declines to Answer Physical Exam Psychiatric: Orientation: alert and oriented x 3 Apperance: appropriately dressed and + disheveled Eye Contact: + fair eye contact Motor Behavior: no abnormal motor movements Speech: + pressured speech Affect: + depressed affect, + anxious affect, + tearful affect, + labile affect and + irritable affect Mood: + anxious mood Thought Process: + tangential thought process and + looseness of associations Thought Content: + paranoid and + delusions Suicidal Thoughts: denies suicidal thoughts Homicidal Thoughts: denies homicidal thoughts Insight: + limited insight Judgment: + limited judgement Vital Signs (Past 24 Hours): Last Vital Signs Temp 36.4 C L 03/20/25 15:17 Pulse 71 03/20/25 15:17 Resp 18 03/20/25 15:17 BP 167/94 H 03/20/25 15:17 Pulse Ox 99 03/20/25 15:17 O2 Del Method Room Air 03/20/25 15:17 Results & Data (PSY) Medications Administered Enoxaparin Sodium (Enoxaparin Inj 40 Mg/0.4 Ml Syr) 40 mg SQ QAM DENISHA Stop: 04/19/25 08:59 Last Admin: 03/20/25 09:12 Dose: 40 mg Documented By: AUSTIN Sodium Chloride (Nss) 1,000 mls @ 200 mls/hr IV .Q5H DENISHA Stop: 03/21/25 01:14 Last Admin: 03/20/25 13:58 Dose: 200 mls/hr Documented By: Infusion: 03/20/25 13:54 Dose: Infused Documented By: Admin: 03/20/25 08:45 Dose: 200 mls/hr Documented By: Infusion: 03/20/25 08:45 Dose: Infused Documented By: Admin: 03/20/25 01:25 Dose: 125 mls/hr Documented By: ERIC Olanzapine (Olanzapine 10 Mg/2.1 Ml Sdv) 2.5 mg IM Q4H PRN PRN Reason: Agitation Stop: 04/19/25 02:17 Last Admin: 03/20/25 04:38 Dose: 2.5 mg Documented By: AMPARO Coding Level of Care Code 48193 IN/OBS CONSULT LVL 5,80M Diagnoses Bipolar disorder with psychotic features F31.9 Rhabdomyolysis M62.82 Acute psychosis F23 Bipolar disorder with severe shemar F31.13
--- NOTE | 2025-03-20 21:32 | Urology Consultation ---
Date of Consultation March 20, 2025 Assessment & Plan (1) Urinary retention: I evaluated the patient in room 320 at the request of the medical service. Urology recommendations are as follows: Nursing staff notes the patient has only been dribbling small amounts of urine and he was bladder scanned for approximately 700 cc of urine. Nursing staff notes that 2 different RNs tried to place a 14 [place] and a 16 [place] Nelson catheter without success and therefore urology was consulted At the time of my initial evaluation the patient was hesitant to have another Nelson catheter attempted and he wished to try to void on his own. This was attempted several times. After patient attempted to void several times he did have a bladder scan for approximate 900 cc of urine and was then agreeable to let this provider attempted to place a Nelson catheter. Procedure note: I verified with the patient that he did not have any allergies to iodine or latex. I then had the patient lie supine and under sterile conditions easily placed a 16 [place] coud catheter. Once the coud catheter was placed, urine flow was verified through the catheter and then the balloon was inflated with 7 cc of sterile water that was on a Nelson catheter kit. The Nelson catheter was allowed to drain via gravity and immediately approximately 800 900 cc of clear yellow urine was obtained. The patient noted symptomatic relief with this modality and tolerated the procedure well. The cause of patient's urinary retention has not been entirely ascertained. Certainly it could be due to some of the medications he takes for behavioral health reasons and we will leave the adjustment of these medications to his medical physicians. It is unlikely this is caused by an infectious process as the urinalysis was negative for infection. It is possible that the patient may have BPH and this can be pursued further as an outpatient. For the present time would recommend maintaining the Nelson catheter in place for bladder rest and a voiding trial can be attempted at a later date. If the catheter does become clogged for any reason it can be flushed and irrigated by nursing staff. Additional recommendations will be coming based on his clinical course as unfolds History of Present Illness Reason for Consultation: Urinary retention Attending Physician: Brandyn Gutierrez, History of Present Illness This is a 49-year-old male who was admitted to the hospital earlier today secondary to confusion and disorientation. He was found to be in rhabdomyolysis and was therefore admitted to the hospital. Urology was asked to see the patient due to urinary retention and difficult Nelson placement. I did question the patient on whether or not he has ever had this probably for any does state that he does take some behavioral medicine medications and he feels that approximately 10 years ago when he was in the [place] area he had a similar problem. He is unsure what treatment was initiated and he is unsure if he ever had a Nelson catheter placed but he notes that this problem did resolve until the present time. Currently he denies any back or flank pain. He denies any fevers, shakes, or chills. He notes that when he attempts to urinate he can only dribble small amounts of urine. He does feel as though he needs to void and has some suprapubic discomfort. He could not provide any more information regarding his urologic history. Patient's most recent labs from today were reviewed. CBC revealed white blood cell count, hemoglobin, hematocrit, and platelet count were all normal. Chemistry profile showed sodium and potassium were normal. His BUN and creatinine were also within normal range. He was noted to have a total elevated CK level at 1018. A urinalysis on 03/19/2025 was negative for infection. At the time of my interview the patient was resting comfortably in bed and he was in no distress. Allergies Allergy/AdvReac Type Severity Reaction Status Date / Time cat dander Allergy Unknown Verified 03/20/25 02:17 Home Medications Medication Instructions Recorded Confirmed Type lurasidone 40 mg tablet (Latuda) 40 mg PO DAILY 03/20/25 03/20/25 History mirtazapine 15 mg tablet (Remeron) 15 mg PO HS 03/20/25 03/20/25 History quetiapine 50 mg tablet (Seroquel) 50 mg PO HS PRN Insomnia 03/20/25 03/20/25 History Patient History Social History Smoking Status: Unknown if ever smoked Hx Alcohol Use: No Hx Substance Use: Yes Preferred Language: Andorran Communication Ability: Impaired Occupational Therapy Program Director Required: No Beliefs That Will Affect Care: None Feels Safe at Home: Declines to Answer Review of Systems Review of Systems: All systems reviewed & are unremarkable except as noted in HPI & below Physical Exam Constitutional: WD/WN, vitals as above Eyes: Wears glasses ENMT: Ears: no hearing impairment and no external ear abnormality Mouth: no oropharynx abnormality Neck: trachea midline Respiratory: normal respiratory effort; no respiratory distress and no labored breathing Cardiovascular: Rate/Rhythm: regular rate and regular rhythm Gastrointestinal (Abdomen): Abdomen is soft without distention or rigidity. There are no signs of peritoni tis Musculoskeletal: No gross orthopedic abnormalities Skin: no rashes Neurologic: moves all extremities Psychiatric: Patient had tangential and disorganized thought process Genitourinary: No CVA tenderness with percussion bilaterally. Patient had a normal-appearing circumcised penis Results & Data Vital Signs (Past 12 Hours) Vital Signs Temp Pulse Pulse Resp BP Pulse Ox O2 Del Method 03/20/25 19:25 36.6 C 70 18 177/105 H 98 Room Air 03/20/25 15:17 36.4 C L 71 18 167/94 H 99 Room Air 03/20/25 14:30 68 20 158/109 H 100 Room Air 03/20/25 10:49 133/88 PG Care Time/CCT Total # of Minutes Spent Total Time Spent with Patient: Total time spent is greater than 50% in coordination of care (as documented) at patient's floor/unit and/or counseling patient: Coding Level of Care Code 67423 IN/OBS CONSULT LVL 5,80M Diagnoses Urinary retention R33.9
[2025-03-21 07:38] LABS: Albumin Globulin Ratio 1.8 (0.9-2); Albumin Level 3.4 gm/dl (3.4-5.0); BUN Creatinine Ratio 9.4 (10-20); Bilirubin,Total 0.7 mg/dl (0.2-1.0); Creatinine Clr Calc Pharmacy 82.7 ml/min; Globulin 1.9 gm/dl (2.5-4.0); Potassium 3.5 mmol/L (3.5-5.1); Total Protein 5.3 gm/dl (6.0-8.3)
--- NOTE | 2025-03-21 11:17 | Psychiatric Progress Note ---
Date of Service March 21, 2025 Impression / Recommendations Impression Diagnostically consistent with unspecified psychosis but most likely episode of shemar with psychosis in setting of bipolar affective disorder after recent self- taper off of his mood stabilizers. Discussed medication options in details. He consents to starting [place] and Seroquel for mood stabilization and shemar with psychosis and insomnia. Reviewed side effects as tolerated including [place] potential for renal, thyroid, cardiac side effects. He has been on Seroquel and consents to continuing this. A: Slightly more organized thought process today but still very tangential and ongoing shemar. Unfortunately olanzapine, haldol and Seroquel can all contribute to urinary retention. With Nelson catheter, since it is a ligature risk, he must remain on medical floor until he can void without it. Plan for inpatient psychiatric hospitalization once Nelson catheter can be removed and once urinating normally for 24 hours. Would encourage use of ativan IM for behavioral emergencies to lessen risk for further anticholinergic effects with IM olanzapine. Will continue Seroquel since he prefers this antipsychotic option given history of long-term use and urinary symptoms started prior to initial dose of this yesterday. He consents to starting [place]. Baseline labs of thyroid function, kidney function, weight, electrolytes, CBC, and UA were reviewed. The patient remains hospitalized on a completed 302 involuntary commitment, which if not extended, will on 03/24/2025 @ 2054. This patient must remain on safety precautions with a 1-on-1 and is unable to leave the hospital AMA. Overall, I spent a total of 60 minutes with this case including review of chart records, review of labwork,direct evaluation of the patient at bedside, counseling the patient, discussion of the patient with the hospitalist provider, discussion with the psychiatric liason during clinical rounds, review of collateral historian information from the family and documentation in the electronic health record. (1) Bipolar disorder with psychotic features: (2) Acute psychosis: (3) Bipolar disorder with severe shemar: Plan 03/21/2025: -Start [place] carbonate 300mg HS -Continue Seroquel 200mg HS -For behavioral emergency would use: ativan 1mg IM -Continue 1-on-1, he remains on 302 commitment and CANNOT leave AMA -Plan for inpatient psychiatric hospitalization once voiding without Nelson catheter 03/20/2025: -Start Seroquel 200mg HS -Seroquel 100mg TID prn for agitation/psychosis -For behavioral emergency would use: olanzapine 10mg IM (DO NOT exceed 20mg per 24 hours, check EKG if IM dose required, NEVER co-administer with IM or IV benzodiazepines). -Continue 1-on-1, he remains on 302 commitment and CANNOT leave AMA Interval History Identifying Information Aashish is a 49 yo man with a history of bipolar affective disorder admitted medically on a 302 commitment for psychosis with disorganization and inability to care for himself and rhabdomyolysis. Psychiatry consulted for 302 commitment and recommendations. Chief Complaint "I trust you, it's Saturn". Subjective Subjective Patient was seen & assessed and interval progress reviewed. Required IM olanzapine dose yesterday evening for agitation. Had urinary retention and now requiring indwelling Nelson catheter. Today he is seen at bedside with his parents also present per his permission. He denies any medication side effects, feels he slept better with the Seroquel. Recalls feeling overwhelmed last evening due to catheter issues. Today speaks of feeling like he is a puppet on strings and sometimes hard to trust others. References cosmic Saturn and a recent "love triangle but more complex". Wonders about cannabis use with [place] but is agreeable to avoiding cannabis. His mother reported finding a lot of cannabis at his homes. He wonders if there will be enough [place] in the air in the future that he might not have to take it in pill form. Describes feeling as though he's been in a surreal dream since August. Better able to follow and state back some of his medical and treatment plan information. Remains agreeable to taking [place]. Physical Exam Vital Signs (Past 24 Hours) Last Vital Signs Temp 36.4 C L 03/21/25 08:23 Pulse 81 03/21/25 08:23 Resp 18 03/21/25 08:23 BP 139/89 03/21/25 08:23 Pulse Ox 98 03/21/25 08:23 O2 Del Method Room Air 03/21/25 08:23 Results & Data ([facility]) Laboratory Results Laboratory Results - last 24 hr 03/21/25 06:26 Sodium 140 Potassium 3.5 Chloride 110 H Carbon Dioxide 24 Anion Gap 6 BUN 8 Creatinine 0.85 Est Cr Clr Drug Dosing 82.7 eGFR 107.19 BUN/Creatinine Ratio 9.4 L Glucose 103 H Calcium 8.0 L Total Bilirubin 0.7 D AST 32 ALT 23 Alkaline Phosphatase 48 Total Creatine Kinase 509 H Total Protein 5.3 L D Albumin 3.4 Globulin 1.9 L Albumin/Globulin Ratio 1.8 Current Inpatient Medications Current Inpatient Medications: Current Inpatient Medications Acetaminophen (Acetaminophen 325 Mg Tab) 650 mg PO QID PRN PRN Reason: pain/fever Stop: 04/19/25 02:17 Enoxaparin Sodium (Enoxaparin Inj 40 Mg/0.4 Ml Syr) 40 mg SQ QAM [facility] Stop: 04/19/25 08:59 Last Admin: 03/21/25 08:18 Dose: 40 mg Promethazine HCl (Phenergan) 6.25 mg in 50.25 mls @ 201 mls/hr IV Q6H PRN PRN Reason: Nausea And Vomiting Stop: 04/19/25 02:17 Olanzapine (Olanzapine 10 Mg/2.1 Ml Sdv) 2.5 mg IM Q4H PRN PRN Reason: Agitation Stop: 04/19/25 19:51 Quetiapine Fumarate (Quetiapine Fumarate 200 Mg Tab) 200 mg PO HS [facility] Stop: 04/19/25 20:59 Last Admin: 03/20/25 22:51 Dose: 200 mg Quetiapine Fumarate (Quetiapine Fumarate 100 Mg Tablet) 100 mg PO TID PRN PRN Reason: Agitation/psychosis Stop: 04/19/25 20:59 Tamsulosin HCl (Tamsulosin Hcl 0.4 Mg Cap) 0.4 mg PO QAM [facility] Stop: 04/20/25 08:59 Last Admin: 03/21/25 08:51 Dose: 0.4 mg
--- NOTE | 2025-03-21 12:11 | Hospitalist Progress Note ---
Date of Service March 21, 2025 Assessment & Plan (1) Rhabdomyolysis: (2) Acute urinary retention: (3) Bipolar disorder with severe shemar: (4) Acute psychosis: (5) Marijuana use, continuous: Plan Patient 49-year-old gentleman with known bipolar affective disorder with acute shemar and psychosis most likely due to tapering off his mood stabilizers. Admitted to the medical floor initially due to some rhabdomyolysis. CPK significantly improved, continue oral fluids, renal function stable. Patient with acute urinary retention suspect multifactorial, possibly some BPH, possibly secondary medications, possibly secondary to minimal activity last couple days. Maintain Nelson catheter, start Flomax. Patient unable to go to [facility] with Nelson catheter in place will attempt a voiding trial tomorrow morning Reviewed psychiatry recommendations for lithium and Seroquel management of his bipolar disorder. Patient under 302 until 03/24/2025 Admission and Anticipated Discharge Date Admission Date: March 20, 2025 Subjective Events of last evening reviewed. Patient states that he had frequent nocturia prior to admission. He states he never had issues with retention that he is aware of. Agreeable to starting medications to manage his mental health. Physical Exam Physical Exam: Constitutional: Alert HEENT: Mucous membranes moist. Lungs: Clear to auscultation, decreased, no wheezes rales or rhonchi CV: S1-S2, regular Abdomen: Soft, nontender, nondistended Extremities: No significant edema : Nelson catheter in place, clear urine in Nelson Neuro: No focal deficits Psych: Cooperative, still with abnormal thought processes Results & Data Results & Data Vital Signs (Past 12 Hours) Vital Signs Temp Pulse Resp BP Pulse Ox O2 Del Method 03/21/25 08:23 36.4 C L 81 18 139/89 98 Room Air Diagnostic Findings Reviewed imaging, laboratory and diagnostic studies. Pertinent findings as below. Electrolytes stable Creatinine 0.85 CPK 509, improved
--- NOTE | 2025-03-21 14:49 | Urology Progress Note ---
Date of Service March 21, 2025 Assessment & Plan (1) Acute urinary retention: Plan Urinary retention currently managed with Nelson catheter. Creatinine today was 0.85. Can maintain Nelson catheter for now for bladder rest. Can offer voiding trial in the future depending on clinical course - will defer to primary team Continue Flomax. Urology will sign off, can recall as needed. Admission and Anticipated Discharge Date Admission Date: March 20, 2025 Subjective Pt seen at bedside today. He reports some catheter discomfort. Nelson draining clear yellow urine. Review of Systems Constitutional: as per Subjective / HPI Genitourinary: + as per Subjective / HPI Physical Exam Constitutional: no acute distress Neurologic: awake Psychiatric: Orientation: alert Genitourinary: Nelson intact Results & Data Vital Signs (Past 12 Hours) Vital Signs Temp Pulse Resp BP Pulse Ox O2 Del Method 03/21/25 08:23 36.4 C L 81 18 139/89 98 Room Air PG Care Time/CCT Total # of Minutes Spent Total Time Spent with Patient: Total time spent is greater than 50% in coordination of care (as documented) at patient's floor/unit and/or counseling patient: Coding Level of Care Code 41799 SUB INP/OBS CARE 10/21MIN Diagnoses Acute urinary retention R33.8
--- NOTE | 2025-03-21 16:02 | Electrocardiogram Report ---
Test Reason : Blood Pressure : */* mmHG Vent. Rate : 71 BPM Atrial Rate : 71 BPM P-R Int : 150 ms QRS Dur : 78 ms QT Int : 404 ms P-R-T Axes : 73 -47 42 degrees QTcB Int : 439 ms Normal sinus rhythm Left axis deviation Septal infarct , age undetermined Abnormal ECG No previous ECGs available Confirmed by Neil Em ([id number]) on 03/21/2025 4:02:25 PM Referred By: REFERRED SELF Confirmed By: Neil Em
[2025-03-22 06:49] LABS: BUN Creatinine Ratio 12.2 (10-20); Calcium 8.7 mg/dl (8.6-10.3); Creatinine Clr Calc Pharmacy 78.1 ml/min; Potassium 3.8 mmol/L (3.5-5.1)
--- NOTE | 2025-03-22 12:29 | Psychiatric Progress Note ---
Date of Service March 22, 2025 Impression / Recommendations Impression Diagnostically consistent with unspecified psychosis but most likely episode of shemar with psychosis in setting of bipolar affective disorder after recent self- taper off of his mood stabilizers. Discussed medication options in details. He consents to starting [place] and Seroquel for mood stabilization and shemar with psychosis and insomnia. Reviewed side effects as tolerated including [place] potential for renal, thyroid, cardiac side effects. He has been on Seroquel and consents to continuing this. A: Ongoing shemar with tangential thought process but lessening confusion. He required IM lorazepam last evening for agitation after wanting to go outside and feeling upset. Tolerating [place] and Seroquel so far. Voiding trial going well so far, if he continues to be able to void without difficulty then will plan for inpatient psychiatric admission tomorrow pending negative COVID. The patient remains hospitalized on a completed 302 involuntary commitment, which if not extended, will on 03/24/2025 @ 2054. This patient must remain on safety precautions with a 1-on-1 and is unable to leave the hospital AMA. Overall, I spent a total of 50 minutes with this case including review of chart records, review of labwork,direct evaluation of the patient at bedside, counseling the patient, discussion of the patient with the hospitalist provider, discussion with the psychiatric liason during clinical rounds, review of collateral historian information from the family and documentation in the electronic health record. (1) Bipolar disorder with psychotic features: (2) Acute psychosis: (3) Bipolar disorder with severe shemar: Plan 03/22/2025: -Continue current medications -remains unable to leave AMA due to 302 commitment -Continue 1-on-1, he remains on 302 commitment and CANNOT leave AMA -Plan for inpatient psychiatric hospitalization once voiding without Nelson catheter for at least 24 hours without urinary retention -Will need negative COVID test for inpatient psych placement 03/21/2025: -Start [place] carbonate 300mg HS -Continue Seroquel 200mg HS -For behavioral emergency would use: ativan 1mg IM -Continue 1-on-1, he remains on 302 commitment and CANNOT leave AMA -Plan for inpatient psychiatric hospitalization once voiding without Nelson catheter 03/20/2025: -Start Seroquel 200mg HS -Seroquel 100mg TID prn for agitation/psychosis -For behavioral emergency would use: olanzapine 10mg IM (DO NOT exceed 20mg per 24 hours, check EKG if IM dose required, NEVER co-administer with IM or IV benzodiazepines). -Continue 1-on-1, he remains on 302 commitment and CANNOT leave AMA Interval History Identifying Information Aashish is a 49 yo man with a history of bipolar affective disorder admitted medically on a 302 commitment for psychosis with disorganization and inability to care for himself and rhabdomyolysis. Psychiatry consulted for 302 commitment and recommendations. Chief Complaint "I'm doing good I think I worked some stuff out". Subjective Subjective Patient was seen & assessed and interval progress reviewed. Required IM lorazepam last evening. 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 He denies any medication side effects notes "they seem to work". He reflects on various topics including wondering if a conflict prior to admission "if I said the wrong thing I'd end up in eternal torture or pain". Describes having support of family, friends and [employer] but desiring a or romantic partner. Wonders if anyone treating him here in the hospital has romantic feelings for him as he has positive feelings about someone with a nice laugh. Reviewed 302 commitment and 303 possibility. He is supportive of this stating "I am relinquishing control" and "my head was all scrambled". He hopes he can work on social skills, eye contact and feel relaxed on the inpatient psychiatric unit. He was able to void once so far today, states he did this by focusing on eliminating stage fright by fidgeting with a piece of toilet paper. Physical Exam Vital Signs (Past 24 Hours) Last Vital Signs Temp 36.4 C L 03/22/25 07:33 Pulse 64 03/22/25 07:33 Resp 16 03/22/25 07:33 BP 116/82 03/22/25 07:33 Pulse Ox 100 03/22/25 07:33 O2 Del Method Room Air 03/22/25 07:33 Results & Data ([facility]) Laboratory Results Laboratory Results - last 24 hr 03/22/25 06:11 Sodium 137 Potassium 3.8 Chloride 107 Carbon Dioxide 25 Anion Gap 5 BUN 11 Creatinine 0.90 Est Cr Clr Drug Dosing 78.1 eGFR 105.35 BUN/Creatinine Ratio 12.2 Glucose 108 H Calcium 8.7 [place] 0.2 L Current Inpatient Medications Current Inpatient Medications: Current Inpatient Medications Acetaminophen (Acetaminophen 325 Mg Tab) 650 mg PO QID PRN PRN Reason: pain/fever Stop: 04/19/25 02:17 Enoxaparin Sodium (Enoxaparin Inj 40 Mg/0.4 Ml Syr) 40 mg SQ QAM [facility] Stop: 04/19/25 08:59 Last Admin: 03/22/25 07:35 Dose: 40 mg Promethazine HCl (Phenergan) 6.25 mg in 50.25 mls @ 201 mls/hr IV Q6H PRN PRN Reason: Nausea And Vomiting Stop: 04/19/25 02:17 [place] Carbonate ([place] Carbonate 300 Mg Tab) 300 mg PO HS [facility] Stop: 04/20/25 20:59 Last Admin: 03/21/25 20:39 Dose: 300 mg Lorazepam (Lorazepam 2 Mg/1 Ml Vial) 2 mg IM Q4H PRN PRN Reason: Agitation Stop: 04/20/25 16:01 Last Admin: 03/21/25 18:02 Dose: 2 mg Quetiapine Fumarate (Quetiapine Fumarate 200 Mg Tab) 200 mg PO HS [facility] Stop: 04/19/25 20:59 Last Admin: 03/21/25 20:40 Dose: 200 mg Quetiapine Fumarate (Quetiapine Fumarate 100 Mg Tablet) 100 mg PO TID PRN PRN Reason: Agitation/psychosis Stop: 04/19/25 20:59 Last Admin: 03/21/25 14:59 Dose: 100 mg Tamsulosin HCl (Tamsulosin Hcl 0.4 Mg Cap) [facility] Stop: 04/20/25 08:59 Last Admin: 03/22/25 07:36 Dose: 0.4 mg
--- NOTE | 2025-03-22 12:42 | Hospitalist Progress Note ---
Date of Service March 22, 2025 Assessment & Plan (1) Rhabdomyolysis: (2) Acute urinary retention: (3) Bipolar disorder with severe shemar: (4) Acute psychosis: (5) Marijuana use, continuous: Plan Patient 49-year-old gentleman with known bipolar affective disorder presents with psychosis and shemar. This has significantly improved with the introduction of Seroquel. Did receive 1 dose of as needed lorazepam in the last 24 hours. Francis started last night. Patient had some issues with urinary retention at the beginning of his hospitalization. Suspect this is a combination of some mild BPH symptoms exacerbated by anticholinergics that he received to manage his shemar at the time of admission. Continue Flomax Remove Nelson catheter today. Patient was able to void since removing Nelson catheter, postvoid residual bladder scan was 100 cc. Communication with psychiatry. They would like to see the patient did not have any urinary issues for 24 hours before excepting to U Continue current plan of care Continue to monitor for urinary retention Anticipate discharge to U tomorrow Admission and Anticipated Discharge Date Admission Date: March 20, 2025 Subjective Patient's demeanor seems much more calm. Seems to be less manic. He offers no complaints. Anxious to get Nelson catheter out Physical Exam Physical Exam: Constitutional: Alert, nontoxic HEENT: Mucous membranes moist. Lungs: Clear to auscultation, decreased, no wheezes rales or rhonchi CV: S1-S2, regular Abdomen: Soft, nontender, nondistended : Nelson catheter in place with clear urine Extremities: No significant edema Neuro: No focal deficits Psych: Cooperative, abnormal thought processes Results & Data Results & Data Vital Signs (Past 12 Hours) Vital Signs Temp Pulse Resp BP Pulse Ox O2 Del Method 03/22/25 07:33 36.4 C L 64 16 116/82 100 Room Air Diagnostic Findings Reviewed imaging, laboratory and diagnostic studies. Pertinent findings as below. Creatinine 0.90 Francis level 0.2, expected to be low, patient only received his first dose last night
--- NOTE | 2025-03-23 09:02 | Discharge Summary ---
Discharge Summary Date of Service March 23, 2025 Principal Dx & Hospital Course #1 = Principal Diagnosis (1) Rhabdomyolysis: (2) Acute urinary retention: (3) Bipolar disorder with severe shemar: (4) Acute psychosis: (5) Marijuana use, continuous: Plan Mr. Cifuentes is a 49-year-old gentleman with known bipolar affective disorder presents with psychosis and shemar. This has significantly improved with the introduction of Seroquel.Started on lithium this admissions. Initial issues with urinary retention requiring rivas; however resolved. Patient started on flomax without further retention issue.s Patient ultimately with 303 and plan for transfer to U. Notes For Next Care Provider Medication Changes From Visit Started on lithium Started on seroquel 200mg qhs hold latuda and mirtazpine Further adjustments per psych in [facility] Admission HPI Per Admitting Provider History obtained from patient, ED provider, and records. Patient not a reliable historian secondary to disoriented state. Medical history significant for anxiety/mood disorder, past tobacco abuse. Patient family had not heard from patient the last couple of days. Patient family worried about patient because he has not been taking his mood medications. Patient family unaware of suicidality. Local police called to patient's home for welfare check. Patient noted to be confused and disoriented. Patient initially ran from police into the [facility]. Patient brought to the ER for evaluation. Transient tachycardia noted at the ER. Patient unable to answer questions regarding headache, chest pain, SOB, abdominal pain, suicidality. Medical History as above Surgical History : None Family History : Heart disease Personal/Social history : Past tobacco abuse, no EtOH intake, lives by himself Admission Exam Per Admitting Provider GENERAL: Disoriented, incoherent, paranoid, no respiratory distress SKIN: Normal color, warm HEENT: [place] palpebral conjunctivae, no ptosis, dry buccal mucosa NECK : Supple, no tenderness CHEST : CTA, no tenderness HEART : RRR, no obvious murmurs ABDOMEN: Some distention, nontender EXTREMITIES : No LE swelling/tenderness, palpable pulses, no other conspicuous deformities noted NEUROLOGIC : Incoherent, no facial asymmetry, gait and stance not assessed Discharge Exam Constitutional WD/WN, vitals as above Respiratory normal respiratory effort, lungs clear to auscultation Cardiovascular RRR, no murmur, no edema Gastrointestinal (Abdomen) normal bowel sounds, soft, nontender, no hepatosplenomegaly Musculoskeletal no cyanosis or clubbing, extremities motor strength 5/5 Updated Medication List Medication Instructions Recorded Confirmed Type lurasidone 40 mg tablet (Latuda) 40 mg PO DAILY 03/20/25 03/20/25 History mirtazapine 15 mg tablet (Remeron) 15 mg PO HS 03/20/25 03/20/25 History quetiapine 50 mg tablet (Seroquel) 50 mg PO HS PRN Insomnia 03/20/25 03/20/25 History hydroxyzine HCl 10 mg tablet 10 mg PO QID PRN #0 tabs 03/23/25 03/23/25 Rx lithium carbonate 300 mg tablet 300 mg PO HS #0 tabs 03/23/25 03/23/25 Rx melatonin 3 mg tablet 6 mg PO HS PRN sleep 03/23/25 03/23/25 History quetiapine 100 mg tablet 100 mg PO TID PRN anxiety/agitation 03/23/25 03/23/25 History quetiapine 200 mg tablet (Seroquel) 200 mg PO HS #0 tabs 03/23/25 03/23/25 Rx tamsulosin 0.4 mg capsule 0.4 mg PO QAM #30 caps 03/23/25 03/23/25 Rx Hospital Stay Data Consultations 03/20/25 01:43 ED Decision to Admit Stat 03/20/25 02:17 Consult Psychiatry Routine 03/20/25 19:11 Consult Urology Routine Pending Results Patient Have Any Pending Studies at Discharge: No Discharge Instructions Given to Patient (Per Discharging Provider) You were admitted fir behaviors consistent with psychosis, as well as issues with urination You were trialed with a rivas catheter and started on a new medication called "Flomax" to help prevent urinary retention. Total Time Total Time Spent Total Time Spent (In Minutes): 45
[2025-03-23 11:28] LABS: Marijuana Quant, GCMS Urine 416 ng/mL (<5)
== END 2025-03-23 12:58 | DRG 885 ==
LOC: ED 13:22 → EDINP 03-20 01:42 → SUATTDRO 03-20 01:42 → 3E 03-20 02:12

== ENCOUNTER 2025-03-23 10:02 | Inpatient (IN) ==
[2025-03-23] MEDS ORDERED: MAGNESIUM HYDROXIDE SUSP 30 ML UDC PO PRN (13:26)
[2025-03-23] MEDS ORDERED: BISMUTH SUBSALICYLATE 262 MG CHEW PO PRN (13:26)
[2025-03-23] MEDS ORDERED: ALUMINUM/MAGNESIUM SUSP 30 ML UDC PO PRN (13:26)
[2025-03-23] MEDS ORDERED: SODIUM CHLORIDE 0.65% NA SOLN 45 ML (OCEAN) PRN (13:26)
[2025-03-23] MEDS ORDERED: MELATONIN 3 MG TAB PO PRN (14:19)
--- NOTE | 2025-03-23 16:24 | History & Physical ---
Date of Service March 23, 2025 Impression / Recommendations Impression TABITHA BRAGG is a 49-year-old man who currently lives between his homes in [place] and [facility], has a history of bipolar affective disorder and he wonders about possible autism spectrum disorder, and was admitted on 03/23/25 12:58 on a 303 involuntary commitment for shemar with psychosis. Diagnostically consistent with shemar with psychosis due to bipolar affective disorder with emergence of symptoms in the setting of recent self- discontinuation of his previous mood stabilizer Depakote. Substance-induced shemar/psychosis also possible as contribution to current symptoms given cannabis use but less likely primary cause given strong personal and family history of bipolar affective disorder, long history of BPAD diagnosis with mood stability while on mood stabilizer despite use of cannabis. Discussed medication treatment options in detail. Discussed risks, benefits and alternatives. HE remains agreeable to and consents to ongoing use and titration of Chiloquin for mood stabilization and Seroquel for shemar. Reviewed side effects including but not limited to: movement (TD, NMS), cardiac (QTc prolongation), and metabolic (stroke, insulin resistance) and necessity for fasting lipid and glucose labwork and AIMS done with score of 0 and Baseline labs of thyroid function, kidney function, weight, electrolytes, CBC, and UA were reviewed prior to starting Chiloquin, initial level 0.2 reviewed, educated on risks of dehydration, renal, thyroid, cardiac, drug interactions (NSAIDs, ACEIs, angiotensin receptor antagonists). The patient's use history and negative consequences suggests substance use diso rder. Motivational interviewing was done as a brief intervention. Intervention was greater than 5 minutes in length and included assessing readiness to quit, advice on how to reduce or abstain and to set a specific goal for this hospitalization. licensed social worker will also assist in anticipating barriers to reducing or abstaining from substance use and in problem-solving for solutions to those problems while arranging for referral to appropriate treatment. The patient is in contemplative stage with regards to transtheoretical model of change. Recommended decreasing consumption due to disinhibiting effects and potential for worsening psychiatric symptoms. MNPR due to need for sleep promotion and psychosis with paranoia Overall I spent a total of 90 minutes for this admission including review of chart records, review of labwork, direct evaluation of the patient, counseling the patient, ordering medication, risk assessment, discussion with the psychiatric liason RN and documentation in the electronic health record and participation in 303 commitment hearing. (1) Bipolar disorder with severe shemar: (2) Bipolar disorder with psychotic features: (3) Cannabis use disorder, moderate, dependence: Plan 03/23/2025: The patient was admitted to the [facility] ([facility] health unit) on q15 min checks (behavioral with suicide precautions) for safety. The patient will participate in group, recreational, and milieu therapies and will be offered additional individual and family sessions as clinically appropriate. -Continue Seroquel 200mg HS with additional 200mg HS prn for insomnia -Increase Chiloquin carbonate to 600mg HS -Ativan 1mg po TID prn for shemar -Seroquel 100mg TID po prn for restlessness/agitation -Tamsulosin 0.4mg daily per medical team recommendation -fasting lipid panel and HbA1c tomorrow AM -SW to help with disposition planning including re-establishing care with an outpatient psychiatrist and therapist Inventory Assets Strengths: supportive relationships, intelligent, driven, likes to volunteer and help in the community Needs: safety and stabilization, medication adjustment, additional coping skills, increased outpatient services Suicide Risk Level Suicide Risk Level: Low (q15 min observation checks) (denies SI and feels able to ask for support if he feels unsafe ) Risk Factors Assessment Male: Yes : Yes Do You Have Access To A Gun?: No Health Problems: No Mental Health Diagnoses: Yes Substance Use Disorders: Yes Previous Attempt: No Family History of Suicide: Yes Previous Psychiatric Hospitalization: Yes Hopelessness: No Protective Factors Assessment Stable Relationships: Yes Supportive Family: Yes Psychiatric History Identifying Data TABITHA BRAGG is a 49-year-old man who currently lives between his homes in [place] and [facility], has a history of bipolar affective disorder and he wonders about possible autism spectrum disorder, and was admitted on 03/23/25 12:58 on a 303 involuntary commitment for shemar with psychosis. Chief Complaint "I have severe trust and abdanonment issues". History of Present Illness Tabitha was admitted for psychiatric hospitalization for shemar and psychosis following recent self-discontinuation of his Depakote about a month ago. He presented to the ED via police following a welfare check from family and was placed on a 302 commitment and admitted medically due to rhabdomyolysis and subsequent urinary retention. While on the medical service he was started on Chiloquin and Seroquel with some improvement in thought organization and sleep. Initial presentation details per my initial consult note on 03/20/2025: " Tabitha was brought to the ED due to concerns for acute psychosis after his family asked for welfare check and he was found lying outside on the ground. In the ED was found to have rhabdomyolysis and admitted medically. He was placed on a 302 commitment after trying to leave due to concern for his inability to care for himself. Today he is seen alongside his parents, whom he gives permission to be present. He and his parents confirm a history of bipolar disorder for which he has been stable for many years on medication. However at this spring he decided he wanted to wean himself off of his psychiatric medications and stopped his Depakote Latuda and mirtazapine. He states he was not able to wean himself off his Seroquel and has continued to use cannabis. His thought process is very tangential and loosened and he jumps between a variety of topics including talking about orbital connections and cosmic events, concerns about plastics and artificial intelligence, fears that mother Earth his and then making statements that he might have been the one who saved mother earth from her when, discussing songs and music that he enjoys and at times speaking about his loneliness and wishing that he could find romantic connection. Seems that some of his decisions around weaning off his medications in the last few months may have been driven in part by influence from his friend and previous assistant professor of business Merlyn who believes strongly that medications should not be used and who left notes with the ED case management describing suggested treatment approaches of having him participate with 7-day Judaism Caodaism live at a commune or that his psychosis may be his "reintegration" as part of his body mind and sole spiritual path. Tabitha reports psychiatric history of seeing a Dr. Perry in the [place] area via telemedicine for psychiatry up until the spring. He seems to describe that Dr. Perry was not in support of Tabitha coming off of his medications. 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 Past psychiatric medication trials including Depakote, Seroquel, fluoxetine, Wellbutrin, Latuda, mirtazapine. Significant family history of bipolar disorder including a grandfather who had ECT and an aunt with bipolar disorder. 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 He also enjoys [employer]ing and being outside. His parents are very supportive." Met with Tabitha and processed the 303 commitment hearing and updates. He clarifies that he did not attempt to elope from the hospital on the night of the because he wanted to leave the hospital but because he could not trust the 1-on-1 in his room who he felt was giving off bad "vibes" and an angry demeanor. Tells me this is further amplified by his lifelong trust and abandonment issues. 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 Describes himself as a climate activist and someone who has always cared for Mother Earth. Notes he sees the earth as alive as a spirit and references cultures over time that share this methodist belief. Notes he only recently reconnected with his family and is finding them supportive. He wonders if he is on the autism spectrum and cites reading about individuals with ASD having body twitches which he's also experienced. Feels he will be able to keep his mind busy on the inpatient unit if he can have paper to write as he needs to work on planning for "new earth" and regenerative agriculture ideas. Today tells me he wasn't seeing Dr. Perry recently but rather Dr. Molina for psychiatry. Past Psychiatric History Current Psychiatric Diagnosis: psychosis, delusions Outpatient Services: none, possible appointments with Dr. Molina or Dr. Perry (?) this spring Do You Have Access To A Gun?: No History of Previous Suicide Attempt: No Past Medication Trials: multiple-Depakote (caused hair loss), Seroquel, fluoxetine, Wellbutrin, Latuda, mirtazapine Allergies Allergy/AdvReac Type Severity Reaction Status Date / Time cat dander Allergy Unknown Verified 03/20/25 02:17 Home Medications Medication Instructions Recorded Confirmed Type lurasidone 40 mg tablet (Latuda) 40 mg PO DAILY 03/20/25 03/20/25 History mirtazapine 15 mg tablet (Remeron) 15 mg PO HS 03/20/25 03/20/25 History quetiapine 50 mg tablet (Seroquel) 50 mg PO HS PRN Insomnia 03/20/25 03/20/25 History hydroxyzine HCl 10 mg tablet 10 mg PO QID PRN #0 tabs 03/23/25 03/23/25 Rx lithium carbonate 300 mg tablet 300 mg PO HS #0 tabs 03/23/25 03/23/25 Rx melatonin 3 mg tablet 6 mg PO HS PRN sleep 03/23/25 03/23/25 History quetiapine 100 mg tablet 100 mg PO TID PRN anxiety/agitation 03/23/25 03/23/25 History quetiapine 200 mg tablet (Seroquel) 200 mg PO HS #0 tabs 03/23/25 03/23/25 Rx tamsulosin 0.4 mg capsule 0.4 mg PO QAM #30 caps 03/23/25 03/23/25 Rx Family History Family History of: Psychosis/ThoughtDisorder and Bipolar (grandfather, maternal aunt, mother, sister) Family Mental Health History Comment: Reports history of three uncle's (Lucius, Richard, and Tim) with Suicide completion. Alcohol History Hx of Alcohol Use Over the Past 12 Months: No History of alcohol use disorder in sustained remission since 2018 Smoking Use Have You Smoked or Used Tobacco Products in the Last 30 Days: No Smoking Status: Unknown if ever smoked Substance History Hx of Prescription Med Misuse Over the Past 12 Months: No Hx of Over the Counter Med Misuse Over the Past 12 Months: No Hx of Inhalent Misuse Over the Past 12 Months: No Hx of Organic Substance Use Over the Past 12 Months: Yes (marijuana use - "every day, all day long") Hx of Illegal Substances/Street Drug Use Over Past 12 Months: No Problems as a Result of Past Substance Use: None Identified Personal History Living Arrangements: Home Living Arrangements Comments: Reports has two homes and resides back and forth between the two. Highest Grade Completed: College Highest Grade Completed Comment: Bachelors degree in Logistics, Economics and software. Marital Status: Single Number Of Children: 0 Beliefs That Will Affect Care: None Current Legal Problems: No Patient History Social History Smoking Status: Unknown if ever smoked Hx Alcohol Use: No Hx Substance Use: Yes Preferred Language: Samoan Communication Ability: Impaired Securities Underwriter Required: No Beliefs That Will Affect Care: None Feels Safe at Home: Yes Gender Identity: Male Assistive Devices: Glasses Review of Systems Review of Systems: All systems reviewed & are unremarkable except as noted in HPI & below Physical Exam Psychiatric: Orientation: alert and oriented x 3 Apperance: appropriately dressed and appropriately groomed Eye Contact: good eye contact Motor Behavior: no abnormal motor movements Speech: + pressured speech; + abnormal rate/rhythm/volume of speech Affect: + anxious affect and + labile affect Mood: + anxious mood Thought Process: + tangential thought process and + flight of ideas Thought Content: + preoccupation, + paranoid and + delusions Suicidal Thoughts: denies suicidal thoughts, denies suicidal plan and denies suicidal intent Homicidal Thoughts: denies homicidal thoughts Hallucinations: no auditory hallucinations and no visual hallucinations Cognition: recent memory grossly intact, remote memory grossly intact, attention grossly intact and language grossly intact Estimated Intelligence: + above average estimated intelligence Insight: + fair insight Judgment: + limited judgement Vital Signs (Past 24 Hours): Last Vital Signs Temp 36.8 C 03/23/25 14:24 Pulse 91 H 03/23/25 14:24 Resp 16 03/23/25 14:24 BP 127/88 03/23/25 14:24 Pulse Ox 100 03/23/25 14:24 O2 Del Method Room Air 03/23/25 14:24 Exam Statement: A physical exam was performed on the medical floor by Dr. Garibay for the purposes of medical clearance. I accept that physical as correct and adequate for the purposes of the inpatient physical exam. Results & Data ([facility]) Current Inpatient Medications Current Inpatient Medications: Current Inpatient Medications Acetaminophen (Acetaminophen 325 Mg Tab) 650 mg PO Q4H PRN PRN Reason: Headache or Minor Fever Stop: 04/22/25 13:25 Al Hydrox/Mg Hydrox/Simethicone (Aluminum/Magnesium Susp 30 Ml Udc) 30 ml PO Q4H PRN PRN Reason: GI Upset Stop: 04/22/25 13:25 Bismuth Subsalicylate (Bismuth Subsalicylate 262 Mg Chew) 2 tab PO Q30M PRN PRN Reason: Loose Stool/Diarrhea Stop: 04/22/25 13:25 Hydroxyzine HCl (Hydroxyzine Hcl 25 Mg Tab) 50 mg PO HSZ PRN PRN Reason: Insomnia Stop: 04/22/25 13:25 Hydroxyzine HCl (Hydroxyzine Hcl 25 Mg Tab) 25 mg PO Q4H PRN PRN Reason: Anxiety Stop: 04/22/25 13:25 Chiloquin Carbonate (Chiloquin Carbonate 300 Mg Tab) 600 mg PO HS DENISHA Stop: 04/22/25 21:59 Lorazepam (Lorazepam 1 Mg Tab) 1 mg PO TID PRN PRN Reason: shemar Stop: 04/22/25 14:23 Lorazepam (Lorazepam 2 Mg/1 Ml Vial) 2 mg IM BID PRN PRN Reason: aggression Stop: 04/22/25 14:23 Magnesium Hydroxide (Magnesium Hydroxide Susp 30 Ml Udc) 30 ml PO DAILY PRN PRN Reason: Constipation Stop: 04/22/25 13:25 Melatonin (Melatonin 3 Mg Tab) 6 mg PO HS PRN PRN Reason: sleep Stop: 04/22/25 14:18 Quetiapine Fumarate (Quetiapine Fumarate 100 Mg Tablet) 100 mg PO TID PRN PRN Reason: anxiety/agitation Stop: 04/22/25 14:18 Quetiapine Fumarate (Quetiapine Fumarate 200 Mg Tab) 200 mg PO HS DENISHA Stop: 04/22/25 21:59 Quetiapine Fumarate (Quetiapine Fumarate 200 Mg Tab) 200 mg PO HS PRN PRN Reason: insomnia Stop: 04/22/25 21:59 Sodium Chloride (Sodium Chloride 0.65% Na Soln 45 Ml (Tift)) 1 - 2 sprays NA PRN PRN PRN Reason: Nasal Dryness/Congestion Stop: 04/22/25 13:25 Tamsulosin HCl (Tamsulosin Hcl 0.4 Mg Cap) 0.4 mg PO QAM DENISHA Stop: 04/23/25 08:59
[2025-03-23] MEDS: COUGH DROP (SUGAR FREE) LOZ 24 LOZ/1 BOX BUCCAL PRN (20:28)
[2025-03-23] MEDS: LITHIUM CARBONATE 300 MG TAB PO SCH (20:58)
[2025-03-24 08:38] LABS: Cholesterol 198.0 mg/dl (0-200); HDL Cholesterol 72.0 mg/dl; Triglycerides 113.0 mg/dl (0-150)
[2025-03-24] MEDS: TAMSULOSIN HCL 0.4 MG CAP PO SCH (09:30)
[2025-03-24 09:56] LABS: Hemoglobin A1C 5.4 % (4.5-5.6)
--- NOTE | 2025-03-24 10:28 | Psychiatric Progress Note ---
Date of Service March 24, 2025 Impression / Recommendations Impression TABITHA BRAGG is a 49-year-old man who currently lives between his homes in [place] and [facility], has a history of bipolar affective disorder and he wonders about possible autism spectrum disorder, and was admitted on 03/23/25 12:58 on a 303 involuntary commitment for shemar with psychosis. Diagnostically consistent with shemar with psychosis due to bipolar affective disorder with emergence of symptoms in the setting of recent self- discontinuation of his previous mood stabilizer Depakote. Substance-induced shemar/psychosis also possible as contribution to current symptoms given cannabis use but less likely primary cause given strong personal and family history of bipolar affective disorder, long history of BPAD diagnosis with mood stability while on mood stabilizer despite use of cannabis. A: Slept well overnight and speech is less rapid and thought process is a little more organized today. Ongoing shemar but showing gradual trend toward improvement. Tolerating Veneta initiation and Seroquel. Bowel medications added for constipation. He is agreeable with ongoing Veneta titration and then plan for level in a few days. Discussed ASD as he wonders about this as a diagnosis and reason for his social difficulties, provided with SRS adult scale. HbA1c and fasting lipid panel were reviewed and stable for ongoing use of Seroquel. MNPR due to need for sleep promotion and psychosis with paranoia Overall, I spent a total of 40 minutes on this case including meeting with the patient, reviewing the chart, nursing report, multidisciplinary team meeting, orders, and documentation. (1) Bipolar disorder with severe shemar: (2) Bipolar disorder with psychotic features: (3) Cannabis use disorder, moderate, dependence: Plan 03/24/2025: -Increase Veneta carbonate to 900mg HS -Colace and miralax added 03/23/2025: The patient was admitted to the [facility] ([facility] health unit) on q15 min checks (behavioral with suicide precautions) for safety. The patient will participate in group, recreational, and milieu therapies and will be offered additional individual and family sessions as clinically appropriate. -Continue Seroquel 200mg HS with additional 200mg HS prn for insomnia -Increase Veneta carbonate to 600mg HS -Ativan 1mg po TID prn for shemar -Seroquel 100mg TID po prn for restlessness/agitation -Tamsulosin 0.4mg daily per medical team recommendation -fasting lipid panel and HbA1c tomorrow AM -SW to help with disposition planning including re-establishing care with an outpatient psychiatrist and therapist Inventory Assets Strengths: supportive relationships, intelligent, driven, likes to volunteer and help in the community Needs: safety and stabilization, medication adjustment, additional coping skills, increased outpatient services Suicide Risk Level Suicide Risk Level: Low (q15 min observation checks) (denies SI and feels able to ask for support if he feels unsafe ) Risk Factors Assessment Male: Yes : Yes Do You Have Access To A Gun?: No Health Problems: No Mental Health Diagnoses: Yes Substance Use Disorders: Yes Previous Attempt: No Family History of Suicide: Yes Previous Psychiatric Hospitalization: Yes Hopelessness: No Protective Factors Assessment Stable Relationships: Yes Supportive Family: Yes Interval History Identifying Information TABITHA BRAGG is a 49-year-old man who currently lives between his homes in [place] and [facility], has a history of bipolar affective disorder and he wonders about possible autism spectrum disorder, and was admitted on 03/23/25 12:58 on a 303 involuntary commitment for shemar with psychosis. Chief Complaint "I'm good". Review of Systems Sleep Information Total Hours of Sleep: 7.5 Meal Information Percent Meal Consumed - Dinner: 0 Subjective Subjective Patient was seen & assessed and interval progress reviewed with nursing and social work. Increased irritability last evening with clapping his hands and expressing frustration with being in the hospital. He processed for an hour with counselor and reported feeling better after that. Today reports feeling settled on the unit. Very supportive of peers. 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 Reflects that likely the combination of self-tapering himself off the mirtazapine and latuda, as well as his desire for romantic connection and cannabis use all culminated to result in his current hospitalization and recent decompensation. He denies any medication side effects though hasn't had a bowel movement in three days. he is agreeable to stool softener and miralax to help with this. He is agreeable to ongoing Veneta titration, reviewed that if not beneficial option to return to Latuda though this was not as beneficial in preventing depression. Physical Exam Psychiatric Orientation: alert and oriented x 3 Apperance: appropriately dressed and appropriately groomed Eye Contact: good eye contact Motor Behavior: no abnormal motor movements Speech: + abnormal rate/rhythm/volume of speech (slightly rapid but not as prominent) Affect: + anxious affect Mood: + anxious mood Thought Process: + circumstantial thought process Thought Content: + preoccupation and + delusions Suicidal Thoughts: denies suicidal thoughts, denies suicidal plan and denies suicidal intent Homicidal Thoughts: denies homicidal thoughts Hallucinations: no auditory hallucinations and no visual hallucinations Cognition: recent memory grossly intact, remote memory grossly intact, attention grossly intact and language grossly intact Estimated Intelligence: + above average estimated intelligence Insight: + fair insight Judgment: + fair judgement Vital Signs (Past 24 Hours) Last Vital Signs Temp 36.6 C 03/24/25 06:25 Pulse 70 03/24/25 06:26 Resp 18 03/24/25 06:25 BP 147/103 H 03/24/25 06:26 Pulse Ox 100 03/23/25 14:24 O2 Del Method Room Air 03/23/25 14:24 [facility] & [facility] Laboratory Results Laboratory Results - last 24 hr 03/24/25 07:42 Estimat Average Glucose 108 Hemoglobin A1c 5.4 Triglycerides 113 Cholesterol 198 LDL Cholesterol, Calc 103 VLDL Cholesterol, Calc 23 HDL Cholesterol 72 Cholesterol/HDL Ratio 2.8 Current Inpatient Medications Current Inpatient Medications: Current Inpatient Medications Acetaminophen (Acetaminophen 325 Mg Tab) 650 mg PO Q4H PRN PRN Reason: Headache or Minor Fever Stop: 04/22/25 13:25 Al Hydrox/Mg Hydrox/Simethicone (Aluminum/Magnesium Susp 30 Ml Udc) 30 ml PO Q4H PRN PRN Reason: GI Upset Stop: 04/22/25 13:25 Bismuth Subsalicylate (Bismuth Subsalicylate 262 Mg Chew) 2 tab PO Q30M PRN PRN Reason: Loose Stool/Diarrhea Stop: 04/22/25 13:25 Hydroxyzine HCl (Hydroxyzine Hcl 25 Mg Tab) 50 mg PO HSZ PRN PRN Reason: Insomnia Stop: 04/22/25 13:25 Hydroxyzine HCl (Hydroxyzine Hcl 25 Mg Tab) 25 mg PO Q4H PRN PRN Reason: Anxiety Stop: 04/22/25 13:25 Veneta Carbonate (Veneta Carbonate 300 Mg Tab) 600 mg PO HS DENISHA Stop: 04/22/25 21:59 Last Admin: 03/23/25 20:58 Dose: 600 mg Lorazepam (Lorazepam 1 Mg Tab) 1 mg PO TID PRN PRN Reason: shemar Stop: 04/22/25 14:23 Lorazepam (Lorazepam 2 Mg/1 Ml Vial) 2 mg IM BID PRN PRN Reason: aggression Stop: 04/22/25 14:23 Magnesium Hydroxide (Magnesium Hydroxide Susp 30 Ml Udc) 30 ml PO DAILY PRN PRN Reason: Constipation Stop: 04/22/25 13:25 Melatonin (Melatonin 3 Mg Tab) 6 mg PO HS PRN PRN Reason: sleep Stop: 04/22/25 14:18 Menthol (Cough Drop (Sugar Free) Paulino 24 Paulino/1 Box) 1 paulino BUCCAL Q2H PRN PRN Reason: Sore Throat Stop: 04/22/25 20:13 Last Admin: 03/23/25 20:28 Dose: 1 paulino Quetiapine Fumarate (Quetiapine Fumarate 200 Mg Tab) 200 mg PO HS DENISHA Stop: 04/22/25 21:59 Last Admin: 03/23/25 20:58 Dose: 200 mg Quetiapine Fumarate (Quetiapine Fumarate 200 Mg Tab) 200 mg PO HS PRN PRN Reason: insomnia Stop: 04/22/25 21:59 Quetiapine Fumarate (Quetiapine Fumarate 100 Mg Tablet) 100 mg PO TID PRN PRN Reason: restlessness/agitation Stop: 04/22/25 14:18 Sodium Chloride (Sodium Chloride 0.65% Na Soln 45 Ml ([place])) 1 - 2 sprays NA PRN PRN PRN Reason: Nasal Dryness/Congestion Stop: 04/22/25 13:25 Tamsulosin HCl (Tamsulosin Hcl 0.4 Mg Cap) 0.4 mg PO QAM DENISHA Stop: 04/23/25 08:59 Last Admin: 03/24/25 09:30 Dose: 0.4 mg Mental Health & Subst Abuse Tx Therapist Name of Therapist: Kellee Jorge Post Discharge Appointments Primary Care Physician Name Of Family Doctor/PCP: Darrion Cavazos
[2025-03-24] MEDS: DOCUSATE SODIUM 100 MG CAP PO SCH (21:03)
[2025-03-24] MEDS: LITHIUM CARBONATE 300 MG TAB PO SCH (21:04)
[2025-03-25] MEDS: ACETAMINOPHEN 325 MG TAB PO PRN (07:27)
[2025-03-25] MEDS: POLYETHYLENE (MIRALAX) 17 GM PACK PO SCH (09:17)
[2025-03-25] MEDS: LORazepam 1 MG TAB PO PRN (12:06)
[2025-03-25] MEDS: PSYLLIUM HUSK 4GM PACKET PO SCH (14:52)
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
[2025-03-25] MEDS: LORazepam 0.5 MG TAB PO PRN (17:41)
[2025-03-25] MEDS: LORazepam 1 MG TAB PO SCH (21:20)
[2025-03-26] MEDS: LITHIUM CARBONATE 300 MG TAB PO SCH (09:14)
--- NOTE | 2025-03-26 13:33 | Psychiatric Progress Note ---
Date of Service March 26, 2025 Impression / Recommendations Impression TABITHA BRAGG is a 49-year-old man who currently lives between his homes in [place] and [facility], has a history of bipolar affective disorder and he wonders about possible autism spectrum disorder, and was admitted on 03/23/25 12:58 on a 303 involuntary commitment for shemar with psychosis. Diagnostically consistent with shemar with psychosis due to bipolar affective disorder with emergence of symptoms in the setting of recent self- discontinuation of his home psychotropics. Substance-induced shemar/psychosis also possible as contribution to current symptoms given cannabis use but less likely primary cause given strong personal and family history of bipolar affective disorder, long history of BPAD diagnosis with mood stability while on mood stabilizer despite use of cannabis. A: Patient slept well last night presents decreased energy levels and less goal directed activity today. Appears less restless. Continues to maintain grandiose delusion. We will monitor for depressive episode following resolution of shemar. Tolerating lithium and Seroquel well. Plan to decrease nightly lorazepam dose. MNPR due to shemar, need for sleep promotion and psychosis with paranoia Overall, I spent a total of 45 minutes on this case including meeting with the patient, reviewing the chart, nursing report, multidisciplinary team meeting, orders, and documentation. (1) Bipolar disorder with severe shemar: (2) Bipolar disorder with psychotic features: (3) Cannabis use disorder, moderate, dependence: Plan 03/26/2025: Decrease lorazepam to 1.5 mg at bedtime 03/25/2025: Baseline EKG given age and lithium initiation Discontinue Colace and start daily fiber supplement Dulcolax 1 time Start lorazepam 2 mg at bedtime Increase quetiapine to 400 mg at bedtime Start lithium 300 mg in the morning 03/24/2025: -Increase [place] carbonate to 900mg HS -Colace and miralax added 03/23/2025: The patient was admitted to the [facility] ([facility] inpatient mental health unit) on q15 min checks (behavioral with suicide precautions) for safety. The patient will participate in group, recreational, and milieu therapies and will be offered additional individual and family sessions as clinically appropriate. -Continue Seroquel 200mg HS with additional 200mg HS prn for insomnia -Increase [place] carbonate to 600mg HS -Ativan 1mg po TID prn for shemar -Seroquel 100mg TID po prn for restlessness/agitation -Tamsulosin 0.4mg daily per medical team recommendation -fasting lipid panel and HbA1c tomorrow AM -SW to help with disposition planning including re-establishing care with an outpatient psychiatrist and therapist Inventory Assets Strengths: supportive relationships, intelligent, driven, likes to volunteer and help in the community Needs: safety and stabilization, medication adjustment, additional coping skills, increased outpatient services Suicide Risk Level Suicide Risk Level: Low (q15 min observation checks) (denies SI and feels able to ask for support if he feels unsafe ) Risk Factors Assessment Male: Yes : Yes Do You Have Access To A Gun?: No Health Problems: No Mental Health Diagnoses: Yes Substance Use Disorders: Yes Previous Attempt: No Family History of Suicide: Yes Previous Psychiatric Hospitalization: Yes Hopelessness: No Protective Factors Assessment Stable Relationships: Yes Supportive Family: Yes Interval History Identifying Information TABITHA BRAGG is a 49-year-old man who currently lives between his homes in [place] and [facility], has a history of bipolar affective disorder and he wonders about possible autism spectrum disorder, and was admitted on 03/23/25 12:58 on a 303 involuntary commitment for shemar with psychosis. Chief Complaint Shemar Review of Systems Sleep Information Total Hours of Sleep: 8 Meal Information Percent Meal Consumed - Breakfast: 75 Percent Meal Consumed - Lunch: 50 Percent Meal Consumed - Dinner: 100 Subjective Subjective Patient was seen & assessed and interval progress reviewed with treatment team nursing and social work Overnight patient slept 8 hours. Parents visited. Had bowel movement. Staff noted irritable behaviors. On interview patient reports "feeling slower". Says he feels emotionally numb. Feels less "dread" and rates mood at 3 out of 10. Reports getting 10 to 11 hours of sleep. Rates energy at 2 out of 10. 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 Says the meeting with his parents went well but was difficult because his mother was upset he stopped taking the medications. Says that he is on mission to "heal mother earth" and had an awakening a few months ago that this was his roma. Physical Exam Mental Examination Appearance: Unkempt and Disheveled Eye Contact: Fleeting Contact Motor Behavior: Restless Speech: Normal Mood: Calm and Anxious Affect: Anxious and Constricted Thought Process: [place] and Linear Thought Content: Intact and Goal Oriented Hallucinations: None Insight: Poor (to limited) Judgement: Poor (to limited, improving) Vital Signs (Past 24 Hours) Last Vital Signs Temp 36.6 C 03/26/25 06:17 Pulse 85 03/26/25 06:18 Resp 16 03/26/25 06:17 BP 138/92 03/26/25 06:18 Pulse Ox 100 03/23/25 14:24 O2 Del Method Room Air 03/23/25 14:24 Results & Data ([facility]) Current Inpatient Medications Current Inpatient Medications: Current Inpatient Medications Acetaminophen (Acetaminophen 325 Mg Tab) 650 mg PO Q4H PRN PRN Reason: Headache or Minor Fever Stop: 04/22/25 13:25 Last Admin: 03/25/25 07:27 Dose: 650 mg Al Hydrox/Mg Hydrox/Simethicone (Aluminum/Magnesium Susp 30 Ml Udc) 30 ml PO Q4H PRN PRN Reason: GI Upset Stop: 04/22/25 13:25 Bismuth Subsalicylate (Bismuth Subsalicylate 262 Mg Chew) 2 tab PO Q30M PRN PRN Reason: Loose Stool/Diarrhea Stop: 04/22/25 13:25 Haloperidol (Haloperidol 5 Mg Tab) 5 mg PO Q8H PRN PRN Reason: Agitation Stop: 04/24/25 13:44 Hydroxyzine HCl (Hydroxyzine Hcl 25 Mg Tab) 50 mg PO HSZ PRN PRN Reason: Insomnia Stop: 04/22/25 13:25 Hydroxyzine HCl (Hydroxyzine Hcl 25 Mg Tab) 25 mg PO Q4H PRN PRN Reason: Anxiety Stop: 04/22/25 13:25 [place] Carbonate ([place] Carbonate 300 Mg Tab) 900 mg PO HS DENISHA Stop: 04/23/25 21:59 Last Admin: 03/25/25 21:20 Dose: 900 mg [place] Carbonate ([place] Carbonate 300 Mg Tab) 300 mg PO DAILY DENISHA Stop: 04/25/25 08:59 Last Admin: 03/26/25 09:14 Dose: 300 mg Lorazepam (Lorazepam 2 Mg/1 Ml Vial) 2 mg IM BID PRN PRN Reason: aggression Stop: 04/22/25 14:23 Lorazepam (Lorazepam 0.5 Mg Tab) 0.5 mg PO Q2HWA PRN PRN Reason: shemar Stop: 04/22/25 14:23 Last Admin: 03/25/25 17:41 Dose: 0.5 mg Lorazepam (Lorazepam 0.5 Mg Tab) 1.5 mg PO HS DENISHA Stop: 04/25/25 21:59 Magnesium Hydroxide (Magnesium Hydroxide Susp 30 Ml Udc) 30 ml PO DAILY PRN PRN Reason: Constipation Stop: 04/22/25 13:25 Melatonin (Melatonin 3 Mg Tab) 6 mg PO HS PRN PRN Reason: sleep Stop: 04/22/25 14:18 Menthol (Cough Drop (Sugar Free) Paulino 24 Paulino/1 Box) 1 paulino BUCCAL Q2H PRN PRN Reason: Sore Throat Stop: 04/22/25 20:13 Last Admin: 03/23/25 20:28 Dose: 1 paulino Polyethylene Glycol (Polyethylene (Miralax) 17 Gm Pack) 17 gm PO DAILY DENISHA Stop: 04/24/25 08:59 Last Admin: 03/26/25 09:15 Dose: Not Given Psyllium Hydrophilic Mucilloid (Psyllium Husk 4gm Packet) 4 gm PO QAM DENISHA Stop: 04/24/25 13:44 Last Admin: 03/26/25 09:15 Dose: 4 gm Quetiapine Fumarate (Quetiapine Fumarate 200 Mg Tab) 200 mg PO HS PRN PRN Reason: insomnia Stop: 04/22/25 21:59 Quetiapine Fumarate (Quetiapine Fumarate 200 Mg Tab) 400 mg PO HS DENISHA Stop: 04/24/25 21:59 Last Admin: 03/25/25 21:20 Dose: 400 mg Sodium Chloride (Sodium Chloride 0.65% Na Soln 45 Ml ([place])) 1 - 2 sprays NA PRN PRN PRN Reason: Nasal Dryness/Congestion Stop: 04/22/25 13:25 Tamsulosin HCl (Tamsulosin Hcl 0.4 Mg Cap) 0.4 mg PO QAM DENISHA Stop: 04/23/25 08:59 Last Admin: 03/26/25 09:15 Dose: Not Given Mental Health & Subst Abuse Tx Therapist Name of Therapist: Kellee Jorge Post Discharge Appointments Primary Care Physician Name Of Family Doctor/PCP: Darrion Cavazos
[2025-03-26] MEDS: LORazepam 0.5 MG TAB PO SCH (21:10)
--- NOTE | 2025-03-27 13:32 | Psychiatric Progress Note ---
Date of Service March 27, 2025 Impression / Recommendations Impression TABITHA BRAGG is a 49-year-old man who currently lives between his homes in [place] and [facility], has a history of bipolar affective disorder and he wonders about possible autism spectrum disorder, and was admitted on 03/23/25 12:58 on a 303 involuntary commitment for shemar with psychosis. Diagnostically consistent with shemar with psychosis due to bipolar affective disorder with emergence of symptoms in the setting of recent self- discontinuation of his home psychotropics. Substance-induced shemar/psychosis also possible as contribution to current symptoms given cannabis use but less likely primary cause given strong personal and family history of bipolar affective disorder, long history of BPAD diagnosis with mood stability while on mood stabilizer despite use of cannabis. A: Patient presenting improvements in sleep, energy, mood. Shemar symptoms subsiding and patient presents more intact reality testing. Less goal directed. MNPR due to shemar, need for sleep promotion and psychosis with paranoia Overall, I spent a total of 45 minutes on this case including meeting with the patient, reviewing the chart, nursing report, multidisciplinary team meeting, orders, and documentation. (1) Bipolar disorder with severe shemar: (2) Bipolar disorder with psychotic features: (3) Cannabis use disorder, moderate, dependence: Plan 03/27/2025: D/c miralax 03/26/2025: Decrease lorazepam to 1.5 mg at bedtime 03/25/2025: Baseline EKG given age and lithium initiation Discontinue Colace and start daily fiber supplement Dulcolax 1 time Start lorazepam 2 mg at bedtime Increase quetiapine to 400 mg at bedtime Start lithium 300 mg in the morning 03/24/2025: -Increase [place] carbonate to 900mg HS -Colace and miralax added 03/23/2025: The patient was admitted to the [facility] ([facility] mental health unit) on q15 min checks (behavioral with suicide precautions) for safety. The patient will participate in group, recreational, and milieu therapies and will be offered additional individual and family sessions as clinically appropriate. -Continue Seroquel 200mg HS with additional 200mg HS prn for insomnia -Increase [place] carbonate to 600mg HS -Ativan 1mg po TID prn for shemar -Seroquel 100mg TID po prn for restlessness/agitation -Tamsulosin 0.4mg daily per medical team recommendation -fasting lipid panel and HbA1c tomorrow AM -SW to help with disposition planning including re-establishing care with an outpatient psychiatrist and therapist Inventory Assets Strengths: supportive relationships, intelligent, driven, likes to volunteer and help in the community Needs: safety and stabilization, medication adjustment, additional coping skills, increased outpatient services Suicide Risk Level Suicide Risk Level: Low (q15 min observation checks) (denies SI and feels able to ask for support if he feels unsafe ) Risk Factors Assessment Male: Yes : Yes Do You Have Access To A Gun?: No Health Problems: No Mental Health Diagnoses: Yes Substance Use Disorders: Yes Previous Attempt: No Family History of Suicide: Yes Previous Psychiatric Hospitalization: Yes Hopelessness: No Protective Factors Assessment Stable Relationships: Yes Supportive Family: Yes Interval History Identifying Information TABITHA BRAGG is a 49-year-old man who currently lives between his homes in [place] and [facility], has a history of bipolar affective disorder and he wonders about possible autism spectrum disorder, and was admitted on 03/23/25 12:58 on a 303 involuntary commitment for shemar with psychosis. Chief Complaint Shemar Review of Systems Sleep Information Total Hours of Sleep: 6.5 Meal Information Percent Meal Consumed - Breakfast: 100 Percent Meal Consumed - Lunch: 50 Percent Meal Consumed - Dinner: 100 Subjective Subjective Patient was seen & assessed and interval progress reviewed with treatment team nursing and social work Overnight patient slept 6.5 hours. On interview he reports a fair mood. Says he does not member what happened on the medical floor. Endorses "really good" sleep. Reports having trauma of being in restraints while in the ER. Says that his energy is "suppressed". Says in December he tapered off his Remeron and Latuda and was only taking Seroquel 50 mg. Asking about his medications and indications and educated. Physical Exam Mental Examination Appearance: Unkempt Eye Contact: Maintains Eye Contact Motor Behavior: Restless Speech: Normal Mood: Calm Affect: Constricted Thought Process: Floyd and Linear Thought Content: Intact and Goal Oriented Hallucinations: None Insight: Poor (to limited) Judgement: Poor (to limited, improving) Vital Signs (Past 24 Hours) Last Vital Signs Temp 36.6 C 03/27/25 06:23 Pulse 76 03/27/25 06:23 Resp 16 03/27/25 06:23 BP 126/83 03/27/25 06:23 Pulse Ox 100 03/23/25 14:24 O2 Del Method Room Air 03/23/25 14:24 Results & Data ([facility]) Current Inpatient Medications Current Inpatient Medications: Current Inpatient Medications Acetaminophen (Acetaminophen 325 Mg Tab) 650 mg PO Q4H PRN PRN Reason: Headache or Minor Fever Stop: 04/22/25 13:25 Last Admin: 03/25/25 07:27 Dose: 650 mg Al Hydrox/Mg Hydrox/Simethicone (Aluminum/Magnesium Susp 30 Ml Udc) 30 ml PO Q4H PRN PRN Reason: GI Upset Stop: 04/22/25 13:25 Bismuth Subsalicylate (Bismuth Subsalicylate 262 Mg Chew) 2 tab PO Q30M PRN PRN Reason: Loose Stool/Diarrhea Stop: 04/22/25 13:25 Haloperidol (Haloperidol 5 Mg Tab) 5 mg PO Q8H PRN PRN Reason: Agitation Stop: 04/24/25 13:44 Hydroxyzine HCl (Hydroxyzine Hcl 25 Mg Tab) 50 mg PO HSZ PRN PRN Reason: Insomnia Stop: 04/22/25 13:25 Hydroxyzine HCl (Hydroxyzine Hcl 25 Mg Tab) 25 mg PO Q4H PRN PRN Reason: Anxiety Stop: 04/22/25 13:25 [place] Carbonate ([place] Carbonate 300 Mg Tab) 900 mg PO HS DENISHA Stop: 04/23/25 21:59 Last Admin: 03/26/25 20:19 Dose: 900 mg [place] Carbonate ([place] Carbonate 300 Mg Tab) 300 mg PO DAILY DENISHA Stop: 04/25/25 08:59 Last Admin: 03/27/25 08:15 Dose: 300 mg Lorazepam (Lorazepam 2 Mg/1 Ml Vial) 2 mg IM BID PRN PRN Reason: aggression Stop: 04/22/25 14:23 Lorazepam (Lorazepam 0.5 Mg Tab) 0.5 mg PO Q2HWA PRN PRN Reason: shemar Stop: 04/22/25 14:23 Last Admin: 03/25/25 17:41 Dose: 0.5 mg Lorazepam (Lorazepam 0.5 Mg Tab) 1.5 mg PO HS DENISHA Stop: 04/25/25 21:59 Last Admin: 03/26/25 21:10 Dose: 1.5 mg Magnesium Hydroxide (Magnesium Hydroxide Susp 30 Ml Udc) 30 ml PO DAILY PRN PRN Reason: Constipation Stop: 04/22/25 13:25 Melatonin (Melatonin 3 Mg Tab) 6 mg PO HS PRN PRN Reason: sleep Stop: 04/22/25 14:18 Menthol (Cough Drop (Sugar Free) Paulino 24 Paulino/1 Box) 1 paulino BUCCAL Q2H PRN PRN Reason: Sore Throat Stop: 04/22/25 20:13 Last Admin: 03/23/25 20:28 Dose: 1 paulino Polyethylene Glycol (Polyethylene (Miralax) 17 Gm Pack) 17 gm PO DAILY DENISHA Stop: 04/24/25 08:59 Last Admin: 03/27/25 08:15 Dose: Not Given Psyllium Hydrophilic Mucilloid (Psyllium Husk 4gm Packet) 4 gm PO QAM DENISHA Stop: 04/24/25 13:44 Last Admin: 03/27/25 08:15 Dose: Not Given Quetiapine Fumarate (Quetiapine Fumarate 200 Mg Tab) 200 mg PO HS PRN PRN Reason: insomnia Stop: 04/22/25 21:59 Quetiapine Fumarate (Quetiapine Fumarate 200 Mg Tab) 400 mg PO HS DENISHA Stop: 04/24/25 21:59 Last Admin: 03/26/25 20:19 Dose: 400 mg Sodium Chloride (Sodium Chloride 0.65% Na Soln 45 Ml ([place])) 1 - 2 sprays NA PRN PRN PRN Reason: Nasal Dryness/Congestion Stop: 04/22/25 13:25 Tamsulosin HCl (Tamsulosin Hcl 0.4 Mg Cap) 0.4 mg PO QAM DENISHA Stop: 04/23/25 08:59 Last Admin: 03/27/25 08:15 Dose: Not Given Mental Health & Subst Abuse Tx Therapist Name of Therapist: Juju Farias Therapist's Date of Therapist Appointment: 04/14/25 Time of Therapist Appointment: 10:30AM Therapy Appointment Comment: Telehealth Post Discharge Appointments Primary Care Physician Name Of Family Doctor/PCP: Darrion Cavazos
--- NOTE | 2025-03-27 15:13 | Electrocardiogram Report ---
Test Reason : Blood Pressure : */* mmHG Vent. Rate : 79 BPM Atrial Rate : 79 BPM P-R Int : 160 ms QRS Dur : 76 ms QT Int : 360 ms P-R-T Axes : 84 92 29 degrees QTcB Int : 412 ms Normal sinus rhythm Rightward axis Minimal voltage criteria for LVH, may be normal variant Abnormal ECG When compared with ECG of 20-Mar-2025 02:24, QRS axis Shifted right Criteria for Septal infarct are no longer Present Confirmed by Kingston Benites ([id number]) on 03/27/2025 3:13:32 PM Referred By: Aida Esparza Confirmed By: Kingston Benites
--- NOTE | 2025-03-28 15:27 | Psychiatric Progress Note ---
Date of Service March 28, 2025 Impression / Recommendations Impression TABITHA BRAGG is a 49-year-old man who currently lives between his homes in [place] and [facility], has a history of bipolar affective disorder and he wonders about possible autism spectrum disorder, and was admitted on 03/23/25 12:58 on a 303 involuntary commitment for shemar with psychosis. Diagnostically consistent with shemar with psychosis due to bipolar affective disorder with emergence of symptoms in the setting of recent self- discontinuation of his home psychotropics. Substance-induced shemar/psychosis also possible as contribution to current symptoms given cannabis use but less likely primary cause given strong personal and family history of bipolar affective disorder, long history of BPAD diagnosis with mood stability while on mood stabilizer despite use of cannabis. A: Patient is presenting stable sleep. Continues to present high energy at times, is restless, demonstrating labile mood. Concern for mild grandiosity. Plan to taper nightly lorazepam. MNPR due to shemar, need for sleep promotion and psychosis with paranoia Overall, I spent a total of 45 minutes on this case including meeting with the patient, reviewing the chart, nursing report, multidisciplinary team meeting, orders, and documentation. (1) Bipolar disorder with severe shemar: (2) Bipolar disorder with psychotic features: (3) Cannabis use disorder, moderate, dependence: Plan 03/28/2025: Decrease lorazepam to 1 mg at bedtime 03/27/2025: D/c miralax 03/26/2025: Decrease lorazepam to 1.5 mg at bedtime 03/25/2025: Baseline EKG given age and lithium initiation Discontinue Colace and start daily fiber supplement Dulcolax 1 time Start lorazepam 2 mg at bedtime Increase quetiapine to 400 mg at bedtime Start lithium 300 mg in the morning 03/24/2025: -Increase [place] carbonate to 900mg HS -Colace and miralax added 03/23/2025: The patient was admitted to the [facility] ([facility] mental health unit) on q15 min checks (behavioral with suicide precautions) for safety. The patient will participate in group, recreational, and milieu therapies and will be offered additional individual and family sessions as clinically appropriate. -Continue Seroquel 200mg HS with additional 200mg HS prn for insomnia -Increase [place] carbonate to 600mg HS -Ativan 1mg po TID prn for shemar -Seroquel 100mg TID po prn for restlessness/agitation -Tamsulosin 0.4mg daily per medical team recommendation -fasting lipid panel and HbA1c tomorrow AM -SW to help with disposition planning including re-establishing care with an outpatient psychiatrist and therapist Inventory Assets Strengths: supportive relationships, intelligent, driven, likes to volunteer and help in the community Needs: safety and stabilization, medication adjustment, additional coping skills, increased outpatient services Suicide Risk Level Suicide Risk Level: Low (q15 min observation checks) (denies SI and feels able to ask for support if he feels unsafe ) Risk Factors Assessment Male: Yes : Yes Do You Have Access To A Gun?: No Health Problems: No Mental Health Diagnoses: Yes Substance Use Disorders: Yes Previous Attempt: No Family History of Suicide: Yes Previous Psychiatric Hospitalization: Yes Hopelessness: No Protective Factors Assessment Stable Relationships: Yes Supportive Family: Yes Interval History Identifying Information TABITHA BRAGG is a 49-year-old man who currently lives between his homes in [place] and [facility], has a history of bipolar affective disorder and he wonders about possible autism spectrum disorder, and was admitted on 03/23/25 12:58 on a 303 involuntary commitment for shemar with psychosis. Chief Complaint Shemar Review of Systems Sleep Information Total Hours of Sleep: 8.75 Meal Information Percent Meal Consumed - Breakfast: 100 Percent Meal Consumed - Lunch: 0 Percent Meal Consumed - Dinner: 100 Subjective Subjective Patient was seen & assessed and interval progress reviewed with treatment team nursing and social work Overnight slept 9 hours. Says he paced around the hallways to release energy and was effective. He says that his feelings are not numb. Says he is sad about the condition of the other patients on the unit. Reports good sleep overnight with no disruptions. Rates energy 6.5 out of 10. Presents a plan to spend time with his father. 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 Says that he is not a leader of this however is working with other people to accomplish the school. When discussing his current hospitalization he reports feeling trapped in the hospital and becomes quite labile. He goes into the bathroom and screams and then returns. He says that "mother is God" and that he has to get some fresh air. Says that some of his friends told him he made the news in relation to free speech about his views on climate change. Physical Exam Mental Examination Appearance: Unkempt Eye Contact: Maintains Eye Contact Motor Behavior: Restless Speech: Normal Mood: Anxious Affect: Enraged, Irritable and Labile Thought Process: Linear Thought Content: Intact and Goal Oriented Hallucinations: None Insight: Poor (to limited) Judgement: Poor (to limited, improving) Vital Signs (Past 24 Hours) Last Vital Signs Temp 36.6 C 03/27/25 06:23 Pulse 76 03/27/25 06:23 Resp 16 03/27/25 06:23 BP 126/83 03/27/25 06:23 Pulse Ox 100 03/23/25 14:24 O2 Del Method Room Air 03/23/25 14:24 Results & Data ([facility]) Current Inpatient Medications Current Inpatient Medications: Current Inpatient Medications Acetaminophen (Acetaminophen 325 Mg Tab) 650 mg PO Q4H PRN PRN Reason: Headache or Minor Fever Stop: 04/22/25 13:25 Last Admin: 03/25/25 07:27 Dose: 650 mg Al Hydrox/Mg Hydrox/Simethicone (Aluminum/Magnesium Susp 30 Ml Udc) 30 ml PO Q4H PRN PRN Reason: GI Upset Stop: 04/22/25 13:25 Bismuth Subsalicylate (Bismuth Subsalicylate 262 Mg Chew) 2 tab PO Q30M PRN PRN Reason: Loose Stool/Diarrhea Stop: 04/22/25 13:25 Haloperidol (Haloperidol 5 Mg Tab) 5 mg PO Q8H PRN PRN Reason: Agitation Stop: 04/24/25 13:44 Hydroxyzine HCl (Hydroxyzine Hcl 25 Mg Tab) 50 mg PO HSZ PRN PRN Reason: Insomnia Stop: 04/22/25 13:25 Hydroxyzine HCl (Hydroxyzine Hcl 25 Mg Tab) 25 mg PO Q4H PRN PRN Reason: Anxiety Stop: 04/22/25 13:25 Last Admin: 03/28/25 11:45 Dose: 25 mg [place] Carbonate ([place] Carbonate 300 Mg Tab) 900 mg PO HS DENISHA Stop: 04/23/25 21:59 Last Admin: 03/27/25 20:24 Dose: 900 mg [place] Carbonate ([place] Carbonate 300 Mg Tab) 300 mg PO DAILY DENISHA Stop: 04/25/25 08:59 Last Admin: 03/28/25 08:49 Dose: 300 mg Lorazepam (Lorazepam 2 Mg/1 Ml Vial) 2 mg IM BID PRN PRN Reason: aggression Stop: 04/22/25 14:23 Lorazepam (Lorazepam 0.5 Mg Tab) 0.5 mg PO Q2HWA PRN PRN Reason: shemar Stop: 04/22/25 14:23 Last Admin: 03/25/25 17:41 Dose: 0.5 mg Lorazepam (Lorazepam 1 Mg Tab) 1 mg PO HS DENISHA Stop: 04/27/25 21:59 Magnesium Hydroxide (Magnesium Hydroxide Susp 30 Ml Udc) 30 ml PO DAILY PRN PRN Reason: Constipation Stop: 04/22/25 13:25 Melatonin (Melatonin 3 Mg Tab) 6 mg PO HS PRN PRN Reason: sleep Stop: 04/22/25 14:18 Menthol (Cough Drop (Sugar Free) Paulino 24 Paulino/1 Box) 1 paulino BUCCAL Q2H PRN PRN Reason: Sore Throat Stop: 04/22/25 20:13 Last Admin: 03/23/25 20:28 Dose: 1 paulino Polyethylene Glycol (Polyethylene (Miralax) 17 Gm Pack) 17 gm PO DAILY DENISHA Stop: 04/24/25 08:59 Last Admin: 03/28/25 09:08 Dose: Not Given Psyllium Hydrophilic Mucilloid (Psyllium Husk 4gm Packet) 4 gm PO QAM DENISHA Stop: 04/24/25 13:44 Last Admin: 03/28/25 14:16 Dose: 4 gm Quetiapine Fumarate (Quetiapine Fumarate 200 Mg Tab) 200 mg PO HS PRN PRN Reason: insomnia Stop: 04/22/25 21:59 Quetiapine Fumarate (Quetiapine Fumarate 200 Mg Tab) 400 mg PO HS DENISHA Stop: 04/24/25 21:59 Last Admin: 03/27/25 20:23 Dose: 400 mg Sodium Chloride (Sodium Chloride 0.65% Na Soln 45 Ml ([place])) 1 - 2 sprays NA PRN PRN PRN Reason: Nasal Dryness/Congestion Stop: 04/22/25 13:25 Tamsulosin HCl (Tamsulosin Hcl 0.4 Mg Cap) 0.4 mg PO QAM DENISHA Stop: 04/23/25 08:59 Last Admin: 03/28/25 08:49 Dose: 0.4 mg Mental Health & Subst Abuse Tx Psychiatrist Name of Psychiatrist: [facility] Psychiatrist's Date Of Appointment With Psychiatric Provider: 04/09/25 Time of Appointment with Psychiatrist: 9:30AM Psychiatric Appointment Comment: Estimate $205 for initial and $250 thereafter. Bring photo ID. Therapist Name of Therapist: Juju Jarrett Therapist's Date of Therapist Appointment: 04/14/25 Time of Therapist Appointment: 10:30AM Therapy Appointment Comment: Telehealth - fee is $120 per hour Post Discharge Appointments Primary Care Physician Name Of Family Doctor/PCP: Darrion Cavazos Primary Care Date of Future Appointment with PCP: 04/09/25 Time of Appointment with PCP: Arrive 2:45PM Provider Appointment Comment: Call Billing for estimate: [phone] Contact Information Discharge Discharge Address: [facility] [place] [id number]
[2025-03-28] MEDS: LORazepam 1 MG TAB PO SCH (21:01)
--- NOTE | 2025-03-29 15:39 | Psychiatric Progress Note ---
Date of Service March 29, 2025 Impression / Recommendations Impression TABITHA BRAGG is a 49-year-old man who currently lives between his homes in [place] and [facility], has a history of bipolar affective disorder and he wonders about possible autism spectrum disorder, and was admitted on 03/23/25 12:58 on a 303 involuntary commitment for shemar with psychosis. Diagnostically consistent with shemar with psychosis due to bipolar affective disorder with emergence of symptoms in the setting of recent self- discontinuation of his home psychotropics. Substance-induced shemar/psychosis also possible as contribution to current symptoms given cannabis use but less likely primary cause given strong personal and family history of bipolar affective disorder, long history of BPAD diagnosis with mood stability while on mood stabilizer despite use of cannabis. A: Patient is presenting stable sleep. Continues to have periods of mood lability, irritability and easily becomes overwhelmed. Plans have become more rational. Plan for lithium level this evening. MNPR due to shemar, need for sleep promotion and psychosis with paranoia Overall, I spent a total of 45 minutes on this case including meeting with the patient, reviewing the chart, nursing report, multidisciplinary team meeting, orders, and documentation. (1) Bipolar disorder with severe shemar: (2) Bipolar disorder with psychotic features: (3) Cannabis use disorder, moderate, dependence: Plan 03/29/2025: Trough lithium level prior to evening dose. 03/28/2025: Decrease lorazepam to 1 mg at bedtime 03/27/2025: D/c miralax 03/26/2025: Decrease lorazepam to 1.5 mg at bedtime 03/25/2025: Baseline EKG given age and lithium initiation Discontinue Colace and start daily fiber supplement Dulcolax 1 time Start lorazepam 2 mg at bedtime Increase quetiapine to 400 mg at bedtime Start lithium 300 mg in the morning 03/24/2025: -Increase [place] carbonate to 900mg HS -Colace and miralax added 03/23/2025: The patient was admitted to the [facility] ([facility] mental health unit) on q15 min checks (behavioral with suicide precautions) for safety. The patient will participate in group, recreational, and milieu therapies and will be offered additional individual and family sessions as clinically appropriate. -Continue Seroquel 200mg HS with additional 200mg HS prn for insomnia -Increase [place] carbonate to 600mg HS -Ativan 1mg po TID prn for shemar -Seroquel 100mg TID po prn for restlessness/agitation -Tamsulosin 0.4mg daily per medical team recommendation -fasting lipid panel and HbA1c tomorrow AM -SW to help with disposition planning including re-establishing care with an outpatient psychiatrist and therapist Inventory Assets Strengths: supportive relationships, intelligent, driven, likes to volunteer and help in the community Needs: safety and stabilization, medication adjustment, additional coping skills, increased outpatient services Suicide Risk Level Suicide Risk Level: Low (q15 min observation checks) (denies SI and feels able to ask for support if he feels unsafe ) Risk Factors Assessment Male: Yes : Yes Do You Have Access To A Gun?: No Health Problems: No Mental Health Diagnoses: Yes Substance Use Disorders: Yes Previous Attempt: No Family History of Suicide: Yes Previous Psychiatric Hospitalization: Yes Hopelessness: No Protective Factors Assessment Stable Relationships: Yes Supportive Family: Yes Interval History Identifying Information TABITHA BRAGG is a 49-year-old man who currently lives between his homes in [place] and [facility], has a history of bipolar affective disorder and he wonders about possible autism spectrum disorder, and was admitted on 03/23/25 12:58 on a 303 involuntary commitment for shemar with psychosis. Chief Complaint Shemar Review of Systems Sleep Information Total Hours of Sleep: 7.75 Meal Information Percent Meal Consumed - Breakfast: 100 Percent Meal Consumed - Lunch: 100 Percent Meal Consumed - Dinner: 100 Subjective Subjective Patient was seen & assessed and interval progress reviewed with treatment team nursing and social work Overnight slept 7.75 hours. Nursing noted patient was disruptive in groups. Family meeting today. Periods of irritability noted. Patient reports being overwhelmed by the groups and says that it is difficult to process while in the hospital. [place]. Rates energy 8 out of 10. Presents a future plan of staying with his father who will help with the transition and catching up with the neighbors. Reports good sleep overnight. Physical Exam Mental Examination Appearance: Unkempt Eye Contact: Maintains Eye Contact Motor Behavior: Restless Speech: Normal Mood: Anxious Affect: Irritable and Labile Thought Process: Linear Thought Content: Intact and Goal Oriented Hallucinations: None Insight: Poor (to limited) Judgement: Poor (to limited, improving) Vital Signs (Past 24 Hours) Last Vital Signs Temp 36.9 C 03/29/25 12:04 Pulse 76 03/29/25 12:04 Resp 18 03/29/25 12:04 BP 141/93 H 03/29/25 12:04 Pulse Ox 99 03/29/25 12:04 O2 Del Method Room Air 03/29/25 12:04 Results & Data ([facility]) Current Inpatient Medications Current Inpatient Medications: Current Inpatient Medications Acetaminophen (Acetaminophen 325 Mg Tab) 650 mg PO Q4H PRN PRN Reason: Headache or Minor Fever Stop: 04/22/25 13:25 Last Admin: 03/25/25 07:27 Dose: 650 mg Al Hydrox/Mg Hydrox/Simethicone (Aluminum/Magnesium Susp 30 Ml Udc) 30 ml PO Q4H PRN PRN Reason: GI Upset Stop: 04/22/25 13:25 Bismuth Subsalicylate (Bismuth Subsalicylate 262 Mg Chew) 2 tab PO Q30M PRN PRN Reason: Loose Stool/Diarrhea Stop: 04/22/25 13:25 Haloperidol (Haloperidol 5 Mg Tab) 5 mg PO Q8H PRN PRN Reason: Agitation Stop: 04/24/25 13:44 Hydroxyzine HCl (Hydroxyzine Hcl 25 Mg Tab) 50 mg PO HSZ PRN PRN Reason: Insomnia Stop: 04/22/25 13:25 Hydroxyzine HCl (Hydroxyzine Hcl 25 Mg Tab) 25 mg PO Q4H PRN PRN Reason: Anxiety Stop: 04/22/25 13:25 Last Admin: 03/29/25 10:13 Dose: 25 mg [place] Carbonate ([place] Carbonate 300 Mg Tab) 900 mg PO HS DENISHA Stop: 04/23/25 21:59 Last Admin: 03/28/25 21:02 Dose: 900 mg [place] Carbonate ([place] Carbonate 300 Mg Tab) 300 mg PO DAILY DENISHA Stop: 04/25/25 08:59 Last Admin: 03/29/25 08:52 Dose: 300 mg Lorazepam (Lorazepam 2 Mg/1 Ml Vial) 2 mg IM BID PRN PRN Reason: aggression Stop: 04/22/25 14:23 Lorazepam (Lorazepam 0.5 Mg Tab) 0.5 mg PO Q2HWA PRN PRN Reason: shemar Stop: 04/22/25 14:23 Last Admin: 03/25/25 17:41 Dose: 0.5 mg Lorazepam (Lorazepam 1 Mg Tab) 1 mg PO HS DENISHA Stop: 04/27/25 21:59 Last Admin: 03/28/25 21:01 Dose: 1 mg Magnesium Hydroxide (Magnesium Hydroxide Susp 30 Ml Udc) 30 ml PO DAILY PRN PRN Reason: Constipation Stop: 04/22/25 13:25 Melatonin (Melatonin 3 Mg Tab) 6 mg PO HS PRN PRN Reason: sleep Stop: 04/22/25 14:18 Menthol (Cough Drop (Sugar Free) Paulino 24 Paulino/1 Box) 1 paulino BUCCAL Q2H PRN PRN Reason: Sore Throat Stop: 04/22/25 20:13 Last Admin: 03/23/25 20:28 Dose: 1 paulino Polyethylene Glycol (Polyethylene (Miralax) 17 Gm Pack) 17 gm PO DAILY DENISHA Stop: 04/24/25 08:59 Last Admin: 03/29/25 08:55 Dose: Not Given Psyllium Hydrophilic Mucilloid (Psyllium Husk 4gm Packet) 4 gm PO QAM DENISHA Stop: 04/24/25 13:44 Last Admin: 03/29/25 08:55 Dose: Not Given Quetiapine Fumarate (Quetiapine Fumarate 200 Mg Tab) 200 mg PO HS PRN PRN Reason: insomnia Stop: 04/22/25 21:59 Quetiapine Fumarate (Quetiapine Fumarate 200 Mg Tab) 400 mg PO HS DENISHA Stop: 04/24/25 21:59 Last Admin: 03/28/25 21:02 Dose: 400 mg Sodium Chloride (Sodium Chloride 0.65% Na Soln 45 Ml ([place])) 1 - 2 sprays NA PRN PRN PRN Reason: Nasal Dryness/Congestion Stop: 04/22/25 13:25 Tamsulosin HCl (Tamsulosin Hcl 0.4 Mg Cap) 0.4 mg PO QAM DENISHA Stop: 04/23/25 08:59 Last Admin: 03/29/25 08:52 Dose: 0.4 mg Mental Health & Subst Abuse Tx Psychiatrist Name of Psychiatrist: Mini Will Psychiatrist's Date Of Appointment With Psychiatric Provider: 04/09/25 Time of Appointment with Psychiatrist: 9:30AM Psychiatric Appointment Comment: Estimate $205 for initial and $250 thereafter. Bring photo ID. Therapist Name of Therapist: Juju Farias Therapist's Date of Therapist Appointment: 04/14/25 Time of Therapist Appointment: 10:30AM Therapy Appointment Comment: Telehealth - fee is $120 per hour Post Discharge Appointments Primary Care Physician Name Of Family Doctor/PCP: Darrion Cavazos Primary Care Date of Future Appointment with PCP: 04/09/25 Time of Appointment with PCP: Arrive 2:45PM Provider Appointment Comment: Call Billing for estimate: [phone] Contact Information Discharge Discharge Address: [address] [address]
--- NOTE | 2025-03-30 12:40 | Psychiatric Progress Note ---
Date of Service March 30, 2025 Impression / Recommendations Impression TABITHA BRAGG is a 49-year-old man who currently lives between his homes in [place] and [facility], has a history of bipolar affective disorder and he wonders about possible autism spectrum disorder, and was admitted on 03/23/25 12:58 on a 303 involuntary commitment for shemar with psychosis. Diagnostically consistent with shemar with psychosis due to bipolar affective disorder with emergence of symptoms in the setting of recent self- discontinuation of his home psychotropics. Substance-induced shemar/psychosis also possible as contribution to current symptoms given cannabis use but less likely primary cause given strong personal and family history of bipolar affective disorder, long history of BPAD diagnosis with mood stability while on mood stabilizer despite use of cannabis. A: Patient's shemar is improving with stable sleep and less mood lability. [place] level resulted at 0.6 and within expected limits given a high rate of metabolism during manic states. Plan to continue current dose and we will schedule the entire dose at bedtime. MNPR due to shemar, need for sleep promotion and psychosis with paranoia Overall, I spent a total of 45 minutes on this case including meeting with the patient, reviewing the chart, nursing report, multidisciplinary team meeting, orders, and documentation. (1) Shemar: (2) Unspecified psychosis not due to a substance or known physiological condi tion: (3) Bipolar 1 disorder: (4) Cannabis use disorder, moderate, dependence: Plan 03/30/2025: [place] 1200 mg at bedtime and discontinue a.m. dose. Discontinue Flomax and MiraLAX. 03/29/2025: Trough lithium level prior to evening dose. 03/28/2025: Decrease lorazepam to 1 mg at bedtime 03/27/2025: D/c miralax 03/26/2025: Decrease lorazepam to 1.5 mg at bedtime 03/25/2025: Baseline EKG given age and lithium initiation Discontinue Colace and start daily fiber supplement Dulcolax 1 time Start lorazepam 2 mg at bedtime Increase quetiapine to 400 mg at bedtime Start lithium 300 mg in the morning 03/24/2025: -Increase [place] carbonate to 900mg HS -Colace and miralax added 03/23/2025: The patient was admitted to the [facility] ([facility] mental health unit) on q15 min checks (behavioral with suicide precautions) for safety. The patient will participate in group, recreational, and milieu therapies and will be offered additional individual and family sessions as clinically appropriate. -Continue Seroquel 200mg HS with additional 200mg HS prn for insomnia -Increase [place] carbonate to 600mg HS -Ativan 1mg po TID prn for shemar -Seroquel 100mg TID po prn for restlessness/agitation -Tamsulosin 0.4mg daily per medical team recommendation -fasting lipid panel and HbA1c tomorrow AM -SW to help with disposition planning including re-establishing care with an outpatient psychiatrist and therapist Inventory Assets Strengths: supportive relationships, intelligent, driven, likes to volunteer and help in the community Needs: safety and stabilization, medication adjustment, additional coping skills, increased outpatient services Suicide Risk Level Suicide Risk Level: Low (q15 min observation checks) (denies SI and feels able to ask for support if he feels unsafe ) Risk Factors Assessment Male: Yes : Yes Do You Have Access To A Gun?: No Health Problems: No Mental Health Diagnoses: Yes Substance Use Disorders: Yes Previous Attempt: No Family History of Suicide: Yes Previous Psychiatric Hospitalization: Yes Hopelessness: No Protective Factors Assessment Stable Relationships: Yes Supportive Family: Yes Interval History Identifying Information TABITHA BRAGG is a 49-year-old man who currently lives between his homes in [place] and [facility], has a history of bipolar affective disorder and he wonders about possible autism spectrum disorder, and was admitted on 03/23/25 12:58 on a 303 involuntary commitment for shemar with psychosis. Chief Complaint Shemar Review of Systems Sleep Information Total Hours of Sleep: 6 Meal Information Percent Meal Consumed - Breakfast: 100 Percent Meal Consumed - Lunch: 100 Percent Meal Consumed - Dinner: 100 Subjective Subjective Patient was seen & assessed and interval progress reviewed with treatment team nursing and social work Attended groups. Better boundary control. Slept 6 hours. On interview he reports being upset that his sister is not taking more time out to help him even though he does the same for her. His father is at his farm house and will stay with him after discharge. Slept well overnight. Does not feel emotionally numb. He is not having any problems urinating. Physical Exam Mental Examination Appearance: Unkempt Eye Contact: Maintains Eye Contact Motor Behavior: Unremarkable Speech: Normal Mood: Euthymic and Calm Affect: Appropriate and Congruent Thought Process: Linear Thought Content: Intact and Goal Oriented Hallucinations: None Insight: Fair (to limited) Judgement: Fair (to limited, improving) Vital Signs (Past 24 Hours) Last Vital Signs Temp 36.9 C 03/30/25 06:38 Pulse 89 03/30/25 06:38 Resp 18 03/30/25 06:38 BP 120/78 03/30/25 06:38 Pulse Ox 99 03/29/25 12:04 O2 Del Method Room Air 03/29/25 12:04 Results & Data ([facility]) Laboratory Results Laboratory Results - last 24 hr 03/29/25 17:52 [place] 0.6 Current Inpatient Medications Current Inpatient Medications: Current Inpatient Medications Acetaminophen (Acetaminophen 325 Mg Tab) 650 mg PO Q4H PRN PRN Reason: Headache or Minor Fever Stop: 04/22/25 13:25 Last Admin: 03/25/25 07:27 Dose: 650 mg Al Hydrox/Mg Hydrox/Simethicone (Aluminum/Magnesium Susp 30 Ml Udc) 30 ml PO Q4H PRN PRN Reason: GI Upset Stop: 04/22/25 13:25 Bismuth Subsalicylate (Bismuth Subsalicylate 262 Mg Chew) 2 tab PO Q30M PRN PRN Reason: Loose Stool/Diarrhea Stop: 04/22/25 13:25 Haloperidol (Haloperidol 5 Mg Tab) 5 mg PO Q8H PRN PRN Reason: Agitation Stop: 04/24/25 13:44 Hydroxyzine HCl (Hydroxyzine Hcl 25 Mg Tab) 50 mg PO HSZ PRN PRN Reason: Insomnia Stop: 04/22/25 13:25 Hydroxyzine HCl (Hydroxyzine Hcl 25 Mg Tab) 25 mg PO Q4H PRN PRN Reason: Anxiety Stop: 04/22/25 13:25 Last Admin: 03/29/25 10:13 Dose: 25 mg [place] Carbonate ([place] Carbonate 300 Mg Tab) 1,200 mg PO HS DENISHA Stop: 04/29/25 21:59 Lorazepam (Lorazepam 2 Mg/1 Ml Vial) 2 mg IM BID PRN PRN Reason: aggression Stop: 04/22/25 14:23 Lorazepam (Lorazepam 0.5 Mg Tab) 0.5 mg PO Q2HWA PRN PRN Reason: shemar Stop: 04/22/25 14:23 Last Admin: 03/25/25 17:41 Dose: 0.5 mg Lorazepam (Lorazepam 1 Mg Tab) 1 mg PO HS DENISHA Stop: 04/27/25 21:59 Last Admin: 03/29/25 20:25 Dose: 1 mg Magnesium Hydroxide (Magnesium Hydroxide Susp 30 Ml Udc) 30 ml PO DAILY PRN PRN Reason: Constipation Stop: 04/22/25 13:25 Melatonin (Melatonin 3 Mg Tab) 6 mg PO HS PRN PRN Reason: sleep Stop: 04/22/25 14:18 Menthol (Cough Drop (Sugar Free) Paulino 24 Paulino/1 Box) 1 paulino BUCCAL Q2H PRN PRN Reason: Sore Throat Stop: 04/22/25 20:13 Last Admin: 03/23/25 20:28 Dose: 1 paulino Psyllium Hydrophilic Mucilloid (Psyllium Husk 4gm Packet) 4 gm PO QAM DENISAH Stop: 04/24/25 13:44 Last Admin: 03/30/25 08:55 Dose: Not Given Quetiapine Fumarate (Quetiapine Fumarate 200 Mg Tab) 200 mg PO HS PRN PRN Reason: insomnia Stop: 04/22/25 21:59 Quetiapine Fumarate (Quetiapine Fumarate 200 Mg Tab) 400 mg PO HS DENISHA Stop: 04/24/25 21:59 Last Admin: 03/29/25 20:26 Dose: 400 mg Sodium Chloride (Sodium Chloride 0.65% Na Soln 45 Ml ([place])) 1 - 2 sprays NA PRN PRN PRN Reason: Nasal Dryness/Congestion Stop: 04/22/25 13:25 Mental Health & Subst Abuse Tx Psychiatrist Name of Psychiatrist: Mini Will Psychiatrist's Date Of Appointment With Psychiatric Provider: 04/09/25 Time of Appointment with Psychiatrist: 9:30AM Psychiatric Appointment Comment: Estimate $205 for initial and $250 thereafter. Bring photo ID. Therapist Name of Therapist: Juju Farias Therapist's Date of Therapist Appointment: 04/14/25 Time of Therapist Appointment: 10:30AM Therapy Appointment Comment: Telehealth - fee is $120 per hour Post Discharge Appointments Primary Care Physician Name Of Family Doctor/PCP: Darrion Cavazos Primary Care Date of Future Appointment with PCP: 04/09/25 Time of Appointment with PCP: Arrive 2:45PM Provider Appointment Comment: Call Billing for estimate: [phone] Contact Information Discharge Discharge Address: [facility] [address] [address]
[2025-03-30] MEDS: LITHIUM CARBONATE 300 MG TAB PO SCH (20:27)
--- NOTE | 2025-03-31 07:11 | Discharge Summary ---
Date of Service March 31, 2025 History of Present Illness Aashish was admitted for psychiatric hospitalization for shemar and psychosis following recent self-discontinuation of his Depakote about a month ago. He presented to the ED via police following a welfare check from family and was placed on a 302 commitment and admitted medically due to rhabdomyolysis and subsequent urinary retention. While on the medical service he was started on Chehalis and Seroquel with some improvement in thought organization and sleep. Initial presentation details per my initial consult note on 03/20/2025: " Aashish was brought to the ED due to concerns for acute psychosis after his family asked for welfare check and he was found lying outside on the ground. In the ED was found to have rhabdomyolysis and admitted medically. He was placed on a 302 commitment after trying to leave due to concern for his inability to care for himself. Today he is seen alongside his parents, whom he gives permission to be present. He and his parents confirm a history of bipolar disorder for which he has been stable for many years on medication. However at this spring he decided he wanted to wean himself off of his psychiatric medications and stopped his Depakote Latuda and mirtazapine. He states he was not able to wean himself off his Seroquel and has continued to use cannabis. His thought process is very tangential and loosened and he jumps between a variety of topics including talking about orbital connections and cosmic events, concerns about plastics and artificial intelligence, fears that mother Earth his and then making statements that he might have been the one who saved mother earth from her when, discussing songs and music that he enjoys and at times speaking about his loneliness and wishing that he could find romantic connection. Seems that some of his decisions around weaning off his medications in the last few months may have been driven in part by influence from his friend and previous business banking representative Merlyn who believes strongly that medications should not be used and who left notes with the ED case management describing suggested treatment approaches of having him participate with 7-day Hindu Orthodox live at a commune or that his psychosis may be his "reintegration" as part of his body mind and sole spiritual path. Aashish reports psychiatric history of seeing a Dr. Perry in the [place] area via telemedicine for psychiatry up until the spring. He seems to describe that Dr. Perry was not in support of Aashish coming off of his medications. 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 Past psychiatric medication trials including Depakote, Seroquel, fluoxetine, Wellbutrin, Latuda, mirtazapine. Significant family history of bipolar disorder including a grandfather who had ECT and an aunt with bipolar disorder. 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 He also enjoys flyfishing and being outside. His parents are very supportive." Met with Aashish and processed the 303 commitment hearing and updates. He clarifies that he did not attempt to elope from the hospital on the night of the because he wanted to leave the hospital but because he could not trust the 1-on-1 in his room who he felt was giving off bad "vibes" and an angry demeanor. Tells me this is further amplified by his lifelong trust and abandonment issues. 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 Describes himself as a climate activist and someone who has always cared for Mother Earth. Notes he sees the earth as alive as a spirit and references cultures over time that share this mormonism belief. Notes he only recently reconnected with his family and is finding them supportive. He wonders if he is on the autism spectrum and cites reading about individuals with ASD having body twitches which he's also experienced. Feels he will be able to keep his mind busy on the inpatient unit if he can have paper to write as he needs to work on planning for "new earth" and regenerative agriculture ideas. Today tells me he wasn't seeing Dr. Perry recently but rather Dr. Molina for psychiatry. Physical Exam Mental Examination Appearance: Unkempt Eye Contact: Maintains Eye Contact Motor Behavior: Unremarkable Speech: Normal Mood: Euthymic and Calm Affect: Appropriate and Congruent Thought Process: Linear Thought Content: Intact and Goal Oriented Hallucinations: None Insight: Fair (to limited) Judgement: Fair (to limited, improving) Vital Signs (Past 24 Hours) Last Vital Signs Temp 36.9 C 03/30/25 06:38 Pulse 89 03/30/25 06:38 Resp 18 03/30/25 06:38 BP 120/78 03/30/25 06:38 Pulse Ox 99 07/03/25 12:04 O2 Del Method Room Air 03/29/25 12:04 Principal Diagnosis Bipolar 1 Disorder Psychiatric Data See daily stay summary. In short, safety was maintained and the patient was cooperative with care. Medication changes included starting Chehalis 1200mg HS, Quetiapine 400mg HS and they tolerated this well. A family session was held and safety plan was completed prior to discharge. Pt presented in a manic episode with psychotic features. He presented to the hospital in a dehydrated state with concern for JIMY and rhabdomyolysis and treated on the medical floor prior to inpatient psychiatry transfer. Initially presented a dec need for sleep, labile mood, delusions of grandeur focused on a mission to save mother earth, pressured speech, and had poor boundary control. He presented good sleep and symptoms improved. Was placed on a lorazepam taper prior to discharge. Father to stay with patient for a week to provide support. No safety concerns identified upon discharge. Day of Discharge Assessment Today the patient voices readiness for discharge. They note improvement in mood and deny thoughts to harm self or others. Thoughts remain organized and they are improved from admission. There is no evidence of psychosis. They agree to take mediations as prescribed and keep follow-up appointments. They are stable for discharge to outpatient level of care. Overall, I spent a total of 45 minutes with this case including review of chart records, nursing report, review of lab work, direct evaluation of the patient at bedside, counseling the patient, multidisciplinary team meeting, orders, and documentation in the electronic health record. Transition of Care Transition Of Care Record: was reviewed with the patient Advance Directives Advance Directives Information Provided: Yes Advance Directives: No Mental Health Advance Directive: No Advance Directives on File: No Living Will: No Power of Devops: No Advance Directives Reason:: Declines as Mental Health Visit. Risk Factors Assessment Male: Yes : Yes Do You Have Access To A Gun?: No Health Problems: No Mental Health Diagnoses: Yes Substance Use Disorders: Yes Previous Attempt: No Family History of Suicide: Yes Previous Psychiatric Hospitalization: Yes Hopelessness: No Protective Factors Assessment Stable Relationships: Yes Supportive Family: Yes Discharge Data Lab Results 03/24/25 03/29/25 07:42 17:52 Estimat Average Glucose 108 Hemoglobin A1c 5.4 Triglycerides 113 Cholesterol 198 LDL Cholesterol, Calc 103 VLDL Cholesterol, Calc 23 HDL Cholesterol 72 Cholesterol/HDL Ratio 2.8 Chehalis 0.6 Hospital Course (1) Shemar: (2) Unspecified psychosis not due to a substance or known physiological condition: (3) Bipolar 1 disorder: (4) Cannabis use disorder, moderate, dependence: Plan 03/30/2025: Chehalis 1200 mg at bedtime and discontinue a.m. dose. Discontinue Flomax and MiraLAX. 03/29/2025: Trough lithium level prior to evening dose. 03/28/2025: Decrease lorazepam to 1 mg at bedtime 03/27/2025: D/c miralax 03/26/2025: Decrease lorazepam to 1.5 mg at bedtime 03/25/2025: Baseline EKG given age and lithium initiation Discontinue Colace and start daily fiber supplement Dulcolax 1 time Start lorazepam 2 mg at bedtime Increase quetiapine to 400 mg at bedtime Start lithium 300 mg in the morning 03/24/2025: -Increase Chehalis carbonate to 900mg HS -Colace and miralax added 03/23/2025: The patient was admitted to the [facility] ([facility]) on q15 min checks (behavioral with suicide precautions) for safety. The patient will participate in group, recreational, and milieu therapies and will be offered additional individual and family sessions as clinically appropriate. -Continue Seroquel 200mg HS with additional 200mg HS prn for insomnia -Increase Chehalis carbonate to 600mg HS -Ativan 1mg po TID prn for shemar -Seroquel 100mg TID po prn for restlessness/agitation -Tamsulosin 0.4mg daily per medical team recommendation -fasting lipid panel and HbA1c tomorrow AM -SW to help with disposition planning including re-establishing care with an outpatient psychiatrist and therapist Mental Health & Subst Abuse Tx Psychiatrist Name of Psychiatrist: Mini Will Psychiatrist's Date Of Appointment With Psychiatric Provider: 04/09/25 Time of Appointment with Psychiatrist: 9:30AM Psychiatric Appointment Comment: Estimate $205 for initial and $250 thereafter. Bring photo ID. Therapist Name of Therapist: Juju Farias Therapist's Date of Therapist Appointment: 04/14/25 Time of Therapist Appointment: 10:30AM Therapy Appointment Comment: Telehealth - fee is $120 per hour Post Discharge Appointments Primary Care Physician Name Of Family Doctor/PCP: D[facility] Date of Future Appointment with PCP: 04/09/25 Time of Appointment with PCP: Arrive 2:45PM Provider Appointment Comment: Call Billing for estimate: [phone] Contact Information Discharge Discharge Address: [address] [place] [address] Discharge Plan Discharge Items Patient Disposition: Home - Self-Care Reason For Visit: UNSPECIFIED PSYCHOSIS Discharge Diagnosis: Bipolar 1 Disorder Most Recent Episode Shemar Condition on Discharge: Fair Activity: Resume your previous activity Non-emergency contact: Primary Care Provider, Psychiatrist and Therapist Call non-emergency contact if: you have any medication questions and your symptoms worsen Follow-up/Referrals: Janette Wynn PA-C [Primary Care Provider] - Diet: Regular Addtl Attending Provider Instructions: Continue Chehalis 1200 at bedtime Continue Quetiapine 400mg at bedtime Take Lorazepam 0.5mg at bedtime for one week then stop Focus on self care: sleep hygiene, eat well, limit stress Engage in weekly psychotherapy Pending Studies at Discharge: No Stand-Alone Forms: [employer], Smoking Cessation Medications and DC Order Prescriptions: New lithium carbonate 600 mg capsule 1,200 mg PO HS Qty: 60 0RF quetiapine 400 mg tablet 400 mg PO HS Qty: 30 0RF lorazepam 0.5 mg tablet 0.5 mg PO HS Qty: 14 0RF Discontinued mirtazapine [Remeron] 15 mg Tablet 15 mg PO HS Hold Instructions: per psych quetiapine [Seroquel] 50 mg Tablet 50 mg PO HS PRN (Reason: Insomnia) Hold Instructions: per psych lurasidone [Latuda] 40 mg Tablet 40 mg PO DAILY Hold Instructions: per psych Rx Instructions: must administer with food (at least 350 calories) quetiapine [Seroquel] 200 mg Tablet 200 mg PO HS Qty: 0 0RF tamsulosin 0.4 mg Capsule 0.4 mg PO QAM Qty: 30 0RF hydroxyzine HCl 10 mg Tablet 10 mg PO QID PRNQty: 0 0RF lithium carbonate 300 mg Tablet 300 mg PO HS Qty: 0 0RF melatonin 3 mg tablet 6 mg PO HS PRN (Reason: sleep) quetiapine 100 mg tablet 100 mg PO TID PRN (Reason: anxiety/agitation) Discharge Orders: Discharge Order (Routine); Ordered 03/31/25 Ordered By: Peyman Hedrick Admission Data Admit Date/Time: 03/23/25 12:58 Attending Provider: Peyman Hedrick Admit Provider: Aida Esparza Primary Care Provider: Janette Wynn Other Interventions: Discharge Summary Assessment (RN) Last Done: 03/31/25 08:06 PSY Interdisciplinary Discharge Planning Last Done: 03/31/25 09:37 [place] [address] D/C day mgmt > 30 min Patient Type Established History Detailed Exam Detailed Medical Decision Making High Complexity Diagnoses Shemar F30.9 Unspecified psychosis not due to a substance or known physiological condition F29 Bipolar 1 disorder F31.9 Cannabis use disorder, moderate, dependence F12.20
== END 2025-03-31 10:05 | disposition home or self-care (01) | DRG 885 ==
LOC: 3S 12:58 → SUATTDRO 12:58